=== PATIENT | female | born 1990 | race Caucasian/White ===

== ENCOUNTER 2025-01-23 16:54 | Outpatient (CLI) | payer BC, MEDICAID, SELFPAY | END 2025-01-23 16:55 | disposition home or self-care (01) | LOC: NFLDREF 16:55 | PROVIDERS: Visit Provider Registered Nurse | DX: Z34.83 Encounter for supervision of other normal pregnancy, third trimester (principal) | CPT/HCPCS: 87491; 87591 ==

== ENCOUNTER 2025-01-26 15:46 | Outpatient (CLI) | payer BC, MEDICAID, SELFPAY | END 2025-01-26 15:47 | disposition home or self-care (01) | PROVIDERS: Visit Provider Registered Nurse | DX: Z34.83 Encounter for supervision of other normal pregnancy, third trimester (principal); Z67.21 Type B blood, Rh negative | CPT/HCPCS: 86592; 86850; 87086; J2791 ==

== ENCOUNTER 2025-02-06 10:47 | Outpatient (CLI) | payer BC, MEDICAID, SELFPAY ==
--- NOTE | 2025-02-06 10:45 | CRLHL7_ITS ---
For Patients: As a result of the Century Cures Act, medical imaging exams and procedure reports are released immediately into your electronic medical record. You may view this report before your referring provider. If you have questions, please contact your health care provider. OBSTETRICAL ULTRASOUND TRANSABDOMINAL WITH UA DOPPLER ??? FOLLOW-UP, 02/06/2025 INDICATION: IUGR. CLINICAL HISTORY: LMP: 07/12/2024 AINRUDH by LMP: 04/18/2025 Gestational Age: 29 weeks 6 days COMPARISON: 01/05/2025, 12/01/2024 TECHNIQUE: Real-time rocha-scale transabdominal imaging of the fetus and pelvis was performed as well as color Doppler analysis of the umbilical vessels. FINDINGS: Fetus: Single Cervix: Not visualized positioning: Vertex Amniotic Fluid: 4.8 cm SDP Placenta technique: Transabdominal Placenta position: Posterior DOPPLERS: heart rate: 147 bpm Umbilical artery: 2.5 S/D; 28???34 weeks = less than 4.0 BIOMETRY: BPD: 6.5 cm, 26 weeks 3 days, less than 3% HC: 25.4 cm, 27 weeks 4 days, less than 3% AC: 23.8 cm, 28 weeks 0 days, 6% FL: 5.2 cm, 27 weeks 5 days, less than 3% FL/AC Ratio: 21.89% HC/AC ratio: 1.07 EFW: 1129 grams; 2 lbs. 8 oz. age by this ultrasound: 27 weeks 3 days ANIRUDH by this ultrasound: 05/05/2025 Percentile by ANIRUDH: less than 3% COMMENTS: Growth today = less than 3%, 01/05/25 = 9%, 12/01/24 = 24%. IMPRESSION: 1. Sonographic gestational age 27 weeks 3 days and sonographic due date 05/05/2025. Sonographic age is 17 days behind the clinical age. 2. Estimated weight is less than 3rd percentile. BPD, HC and FL are all less than 3rd percentile. AC is 6th percentile. 3. Umbilical artery S/D ratio is 2.5. ANDRIY CRENSHAW M.D. Diagnostic Radiologist [email or web address] Transcribed: 2:[address]/Dictated by: Andriy Crenshaw MD @ 02/06/2025 12:06:00 PM (Electronically Signed)
== END 2025-02-06 10:48 | disposition home or self-care (01) ==
LOC: US 10:47
PROVIDERS: Visit Provider Obstetrics & Gynecology
DX: O36.5930 Maternal care for other known or suspected poor fetal growth, third trimester, not applicable or unspecified (principal); Z3A.29 29 weeks gestation of pregnancy
CPT/HCPCS: 76816; 76820

== ENCOUNTER 2025-02-16 13:50 | Outpatient (CLI) | payer BC, MEDICAID, SELFPAY ==
--- NOTE | 2025-02-16 13:45 | CRLHL7_ITS ---
For Patients: As a result of the Cures Act, medical imaging exams and procedure reports are released immediately into your electronic medical record. You may view this report before your referring provider. If you have questions, please contact your health care provider. OB ULTRASOUND LIMITED WITH UMBILICAL ARTERY TRANSABDOMINAL Clinical History: LMP: 07/12/2024. ANIRUDH by LMP: 04/18/2025. GA: 31 w, 2 d. Single. Comparison: 02/06/2025, 02/02/2025, 01/05/2025. INDICATION: IUGR. TECHNIQUE: Real time rocha scale imaging of the fetus was performed. Transabdominal imaging performed. Spectral Doppler evaluation performed of umbilical artery. CERVIX: Not visualized. POSITIONING: Vertex. AMNIOTIC FLUID: 12.3 cm MEI. 4.5 cm SDP (N: greater than 2 x 1 cm) PLACENTA: Technique: Transabdominal. PLACENTA POSITION: Posterior. DOPPLER: heart rate: 141 bpm. Umbilical artery: 2.7 S/D. 28-34 w = less than 4.0. IMPRESSION: 1. Umbilical artery spectral Doppler evaluation performed. S/D ratio 2.7. This is considered normal. 2. Amniotic fluid single deepest pocket 4.5 cm. MEI 12.3 cm. Andriy Kelly M.D. Diagnostic Radiologist [email or web address] SP/Dictated by: Andriy Kelly MD @ 02/16/2025 4:24:00 PM (Electronically Signed)
== END 2025-02-16 13:51 | disposition home or self-care (01) ==
LOC: US 13:50
PROVIDERS: Visit Provider Obstetrics & Gynecology
DX: O36.5930 Maternal care for other known or suspected poor fetal growth, third trimester, not applicable or unspecified (principal); Z3A.35 35 weeks gestation of pregnancy
CPT/HCPCS: 76815; 76820

== ENCOUNTER 2025-02-16 15:20 | Outpatient (CLI) | payer BC, MEDICAID, SELFPAY ==
[2025-02-16] VITALS (14 sets, daily range): BP systolic 106; BP diastolic 64; PULSE 66–92; RESP 18; TEMP 36.6; O2SAT 95–100
--- NOTE | 2025-02-16 16:48 | PC.OBNST ---
NST Note NST Note Start: 02/16/25 15:43 Freq: ONCE Status: Active Protocol: Document 02/16/25 16:41 VMM (Rec: 02/16/25 16:47 VMM [id number]) NST Note 6 Para (# of births) 4 EDC 04/18/25 Gestational Age In 31 Weeks & 2 Days Weeks & Days High Risk Factors History of Labor/Delivery Patient Presented Other with Complaint(s) of Other Complaints [facility] due to heart rate having decelerations in clinic. Patient has IUGR. Reactive Yes Appropriate for Yes Gestational Age JOSE Ha RN Date 02/16/25 Reactive Yes Appropriate for Yes Gestational Age JOSE Joseph RN Date 02/16/25 OB NST charge Yes Complete NST Note Yes via Write Note The provider's electronic signature indicates the NST is reactive/appropriate for gestational age. *Note to provider: If an addendum is required, open the patient's chart and click on the note under the Nurse/Allied Health tab.
== END 2025-02-16 16:40 | disposition home or self-care (01) ==
LOC: OB OUT 15:24 → OB 15:24
PROVIDERS: Visit Provider Obstetrics & Gynecology
DX: O36.8330 Maternal care for abnormalities of the fetal heart rate or rhythm, third trimester, not applicable or unspecified (principal); Z3A.31 31 weeks gestation of pregnancy
CPT/HCPCS: 59025; G0463

== ENCOUNTER 2025-02-23 13:52 | Outpatient (CLI) | payer BC, MEDICAID, SELFPAY ==
--- NOTE | 2025-02-23 13:45 | CRLHL7_ITS ---
For Patients: As a result of the Cures Act, medical imaging exams and procedure reports are released immediately into your electronic medical record. You may view this report before your referring provider. If you have questions, please contact your health care provider. OB ULTRASOUND FOLLOW-UP LIMITED, 02/23/2025 CLINICAL HISTORY: IUGR. COMPARISON: 02/16/2025, 02/06/2025, 01/05/2025. TECHNIQUE: FINDINGS: ANIRUDH by LMP: 04/18/2025. GA: 32 weeks 2 days. CERVIX: Not visualized. POSITION: Vertex. AMNIOTIC FLUID: 14 cm MEI. 5.5 cm SDP. PLACENTA: Technique: TA. Placenta Position: Posterior. DOPPLERS: Heart Rate: 147 bpm. IMPRESSION: Umbilical artery spectral Doppler evaluation performed. S/D ratio 3.0 within normal limits. Andriy Kelly M.D. Diagnostic Radiologist [email or web address] Transcribed: 3:40 pm DW/Dictated by: Andriy Kelly MD @ 02/23/2025 3:29:00 PM (Electronically Signed)
== END 2025-02-23 13:53 | disposition home or self-care (01) ==
LOC: US 13:53
PROVIDERS: Visit Provider Obstetrics & Gynecology
DX: O36.5930 Maternal care for other known or suspected poor fetal growth, third trimester, not applicable or unspecified (principal); Z3A.32 32 weeks gestation of pregnancy
CPT/HCPCS: 76815; 76820

== ENCOUNTER 2025-03-02 13:50 | Outpatient (CLI) | payer BC, MEDICAID, SELFPAY ==
--- NOTE | 2025-03-02 13:45 | CRLHL7_ITS ---
For Patients: As a result of the Century Cures Act, medical imaging exams and procedure reports are released immediately into your electronic medical record. You may view this report before your referring provider. If you have questions, please contact your health care provider. OB ULTRASOUND FOLLOW-UP GROWTH TRANSABDOMINAL ANIRUDH by LMP: 04/18/2025. GA: 33 w, 1 d. Single. Comparison: US 02/23/2025, 02/16/2025, 02/06/2025. INDICATION: IUGR. TECHNIQUE: Real time rocha scale imaging of the fetus was performed. Transabdominal imaging performed. CERVIX: Not visualized. POSITIONING: Vertex. AMNIOTIC FLUID: 14.2 cm. 4.8 cm SDP (N: greater than 2 x 1 cm) PLACENTA: Technique: Transabdominal. PLACENTA POSITION: Posterior. DOPPLER: heart rate: 142 bpm. Umbilical artery: 3.3-2.2 S/D. 28-34 w = less than 4.0. BIOMETRY: BPD: 7.4 cm. 29 w, 4 d, <3 percent. HC: 28.1 cm. 30 w, 6 d, <3 percent. AC: 25.9 cm. 30 w, 1 d, <3 percent. FL: 5.8 cm. 30 w, 1 d, <3 percent. FL/AC ratio: 22.17 percent. HC/AC ratio: 1.08. EFW: 1516 g. Weight: 3 lbs, 5 oz. age by this US: 30 w, 1 d. ANIRUDH by this US: 05/10/2025. Percentile by ANIRUDH: <3 percent. IMPRESSION: 1. Sonographic gestational age 30 weeks 1 day and sonographic due date 05/10/2025. Sonographic age is 22 days behind the clinical age. 2. Estimated weight less than 3rd percentile. BPD, HC, AC and FL all less than 3rd percentile. 3. Umbilical artery spectral Doppler evaluation performed. SD ratio between 2.2 and 3.3, considered normal. Andriy Kelly M.D. Diagnostic Radiologist [email or web address] SP/Dictated by: Andriy Kelly MD @ 03/05/2025 4:31:00 PM (Electronically Signed)
== END 2025-03-02 13:51 | disposition home or self-care (01) ==
LOC: US 13:51
PROVIDERS: Visit Provider Obstetrics & Gynecology
DX: O36.5930 Maternal care for other known or suspected poor fetal growth, third trimester, not applicable or unspecified (principal); Z3A.33 33 weeks gestation of pregnancy
CPT/HCPCS: 76816; 76820

== ENCOUNTER 2025-03-09 13:58 | Outpatient (CLI) | payer BC, MEDICAID, SELFPAY ==
--- NOTE | 2025-03-09 13:45 | CRLHL7_ITS ---
For Patients: As a result of the Cures Act, medical imaging exams and procedure reports are released immediately into your electronic medical record. You may view this report before your referring provider. If you have questions, please contact your health care provider. OBSTETRICAL ULTRASOUND WITH UA DOPPLER ??? LIMITED, 03/09/2025 INDICATION: IUGR. CLINICAL HISTORY: ANIRUDH by LMP: 04/18/2025 Gestational Age: 34 weeks 2 days COMPARISON: 03/02/2025, 02/23/2025, 02/16/2025. TECHNIQUE: Real-time rocha-scale transabdominal imaging of the fetus was performed as well as color Doppler analysis of the umbilical vessels. FINDINGS: Fetus: Single positioning: Vertex Amniotic Fluid: MEI: 16.5 cm 5.5 cm SDP Placenta technique: Transabdominal Placenta position: Posterior DOPPLERS: heart rate: 129 bpm Umbilical artery: 2.5 S/D; greater than 34 weeks = less than 3.5 IMPRESSION: Spectral Doppler ultrasound of the umbilical artery performed. Normal S/D ratio of 2.5. ANDRIY CRENSHAW M.D. Diagnostic Radiologist [email or web address] Transcribed: 5:[address]/Dictated by: Andriy Crenshaw MD @ 03/09/2025 3:13:00 PM (Electronically Signed)
== END 2025-03-09 13:59 | disposition home or self-care (01) ==
LOC: US 13:58
PROVIDERS: Visit Provider Obstetrics & Gynecology
DX: O36.5930 Maternal care for other known or suspected poor fetal growth, third trimester, not applicable or unspecified (principal); Z3A.34 34 weeks gestation of pregnancy
CPT/HCPCS: 76815; 76820

== ENCOUNTER 2025-03-16 13:09 | Outpatient (CLI) | payer BC, MEDICAID, SELFPAY ==
--- NOTE | 2025-03-16 13:00 | CRLHL7_ITS ---
For Patients: As a result of the Cures Act, medical imaging exams and procedure reports are released immediately into your electronic medical record. You may view this report before your referring provider. If you have questions, please contact your health care provider. OB ULTRASOUND LMP: 07/12/2024. ANIRUDH by LMP: 04/18/2025. GA: 35 w, 2 d. Single. Comparison: Ultrasounds 03/09/25, 03/02/25 and 02/23/25 INDICATION: IUGR. TECHNIQUE: Real time rocha scale imaging of the fetus was performed. Transabdominal. CERVIX: Not visualized. Vertex. AMNIOTIC FLUID: 13.2 cm MEI. 3.8 cm. SDP (N: greater than 2 x 1 cm) PLACENTA: Technique: Transabdominal. PLACENTA POSITION: Posterior. DOPPLER: heart rate: 118-127 bpm. >34 weeks=<3.5. IMPRESSION: 1. Spectral Doppler evaluation of the umbilical artery performed. SD ratio 2.6. 2. Amniotic fluid single lead ends pocket 3.8 cm. MEI 13.2 cm. Andriy Kelly M.D. Diagnostic Radiologist [email or web address] EMILY/jesus DW/Dictated by: Andriy Kelly MD @ 03/17/2025 9:20:00 PM (Electronically Signed)
--- OUTSIDE RECORDS SUMMARY | 2025-03-17 00:58 | XMS_ITS | Encounter Summary ---
Author Organization [facility] Address [address] [place] [address] Care Team Providers Care Sample Worker Name Role Phone Katarzyna Avitia CNM Primary Care Provider + [phone] Antionette Nelson APRN CNM Unavailable Unavailable Katarzyna Avitia CNM Unavailable [phone] Lesley Mistry MD Unavailable Unavaila ble Antionette Nelson APRN CNM Unavailable Unavailable Antionette Nelson APRNM Unavailable Unavailable Diogenes Soares MD Unavailable [phone] Diogenes Soares MD Unavailable [phone] Ebony Gandara MD Unavailable [phone] Nighat Pendleton MD Unavailable [phone] Reason for Visit * Reason Onset Date Comments Appointment 04/11/2019 Encounter Details Date Type Department Care Team (Late st Contact Info) Description [place]11/[place] [facility] [place] [facility] [address] [place] [phone] Pinky Jacob APRN CNM [address] [place] [address] Appointment Social History Tobacco Use Types Packs/Day Years Used Date Smoking Tobacco: Never Smokeless Tobacco: Never Alcohol Use Standard Drinks/Week Comments No 0 (1 standard drink = 0.6 oz pur e alcohol) PHQ-2 Answer Date Recorded PHQ-2 Score 0 11/29/2018 Education Answer Date Recorded What is the highest level of school you have completed or the highest degree you have received? Bachelor's degree (e.g., BA, AB, BS) 11/29/2018 Comments Yes Sex and Gender Information Value Date Recorded Sex Assigned at Not on file Legal Sex Female 3:16 AM RACING MANAGER Gender Identity Not on file Sexual Orientation Straight 11/23/2018 11 :37 AM RACING MANAGER documented as of this encounter Plan of Treatment Not on file documented as of this encounter Visit Diagnoses Not on filedocumented in this encounter Additional Health Concerns Assessment Noted Time PHQ-9 Depression Total Score: 0 08/12/20 17 1:29 PM RACING MANAGER documented as of this encounter Care Teams Sample Worker Relationship Specialty Start Date End Date Katarzyna Avitia CNM PCP - General canvas worker 03/06/19 Antionette Nelson APRN CNM Assigned OBGYN Provider 10/13/20 10/19/20 Katarzyna Avitia CNM [address] [facility] [address] [place], [place] [address] Assigned OBGYN Provider 08/18/20 Lesley Mistry MD Assigned OBGYN Provider 09/15/20 10/12/20 Antionette Nelson APRN CNM Assigned OBGYN Provider 07/19/20 08/17/20 Antionette Nelson APRN CNM Assigned OBGYN Provider 09/01/20 09/14/20 Diogenes Soares MD [address] [place] [address] [address] [place], [place] [address] Assigned OBGYN Provider 02/02/21 Diogenes Soares MD [address] [place], [place] [id number] Assigned OBGYN Provider 12/29/20 1 Ebony Gandara MD [address] [place] [address] Assigned OBGYN Provider 01/26/21 1 Nighat Pendleton MD [address] [place] [address] Assigned OBGYN Provider 04/25/22 documented as of this encounter
--- OUTSIDE RECORDS SUMMARY | 2025-03-17 00:58 | XMS_ITS | Encounter Summary ---
Author Organization [facility] Address [address] [place] [address] Care Team Providers Care Bridge Opener Name Role Phone Katarzyna Avitia CNM Primary Care Provider + [phone] Antionette Nelson APRN CNM Unavailable Unavailable Katarzyna Avitia CNM Unavailable [phone] Lesley Mistry MD Unavailable Unavaila ble Antionette Nelson APRN CNM Unavailable Unavailable Antionette Nelson APRN CNM Unavailable Unavailable Diogenes Soares MD Unavailable [phone] Diogenes Soares MD Unavailable [phone] Ebony Gandara MD Unavailable [phone] Nighat Pendleton MD Unavailable [phone] Encounter Details Date Type Department Care Team (Late st Contact Info) Description 11/21/2019 [facility] [place] [facility] [address] [place] [phone] Mitul Lopez, WENDY Social History Tobacco Use Types Packs/Day Years Used Date Smoking Tobacco: Never Smokeless Tobacco: Never Alcohol Use Standard Drinks/Week Comments No 0 (1 standard drink = 0.6 oz pur e alcohol) PHQ-2 Answer Date Recorded PHQ-2 Score 0 11/29/2018 [place]oo Depression Scale Answer Date Recorded [place] Depression Score 3 04/19/2019 Last EPDS Self Harm Result Not on file 04/19 Education Answer Date Recorded What is the highest level of school you have completed or the highest degree you have received? Bachelor's degree (e.g., BA, AB, BS) 11/29/2018 Comments No Sex and Gender Information Value Date Recorded Sex Assigned at Not on file Legal Sex Female 3:16 AM POLYSOMNOGRAPH TECH Gender Identity Not on file Sexual Orientation Straight 11/23/2018 11 :37 AM POLYSOMNOGRAPH TECH documented as of this encounter Plan of Treatment Not on file documented as of this encounter Visit Diagnoses Not on filedocumented in this encounter Additional Health Concerns Assessment Noted Time PHQ-9 Depression Total Score: 0 08/12/20 17 1:29 PM POLYSOMNOGRAPH TECH documented as of this encounter Care Teams Bridge Opener Relationship Specialty Start Date End Date Katarzyna Avitia CNM PCP - General quality intern 03/06/19 Antionette Nelson APRN CNM Assigned OBGYN Provider 10/13/20 10/19/20 Katarzyna Avitia CNM [address] [facility] [address] [place] [address] Assigned OBGYN Provider 08/18/20 Lesley Mistry MD Assigned OBGYN Provider 09/15/20 10/12/20 Antionette Nelson APRN CNM Assigned OBGYN Provider 07/19/20 08/17/20 Antionette Nelson APRN CNM Assigned OBGYN Provider 09/01/20 09/14/20 Diogenes Soares MD [address] [place] [address] Assigned OBGYN Provider 02/02/21 Diogenes Soares MD [address] [place] [address] Assigned OBGYN Provider 12/29/20 1 Ebony Gandara MD [address] [place], [place] [id number] Assigned OBGYN Provider 01/26/21 1 Nighat Pendleton MD [address] [place], [place] [id number] Assigned OBGYN Provider 04/25/22 documented as of this encounter
--- OUTSIDE RECORDS SUMMARY | 2025-03-17 00:58 | XMS_ITS | Clinical Summary ---
Author Organization [facility] Address [address] [place] [address] Care Team Providers Care Awning Spreader Name Role Phone Katarzyna Avitia NATALIEQuang Primary Care Provider + [phone] Allergies No known active allergies Medications Vit-Fe Fumarate-FA ( VITAMIN) 27-0.8 MG TABSIndications: Encounter for supervision of other normal in second trimester Take 1 tablet by mouth daily 90 tablet 3 9 Active ibuprofen (ADVIL/MOTRIN) 600 MG tabletIndication s:Normal labor and delivery Take 1 tablet (600 mg) by mouth every 6 hours as needed for moderate pain 20 tablet 1 Active Active Problems Problem Noted Date Diagnosed Date Indication for care in labor or delivery 021 Labor and delivery indication for care or interv ention 04/18/2019 (normal spontaneous vaginal delivery) 04/18 Encounter for triage in patient 019 Normal labor and delivery 04/01/2019 Immunizations Immunization Administration Dates Next Due Rhogam 02/03/2019 TDAP Vaccine (Adacel) 02/03/2019 Family History Medical History Relation Comments Cancer Maternal Grandfather oral Heart Disease Maternal Grandfather Hypertension Maternal Grandfather Cancer Paternal Grandfather Cancer Paternal Grandmother brain Relation Status Comments Father Alive Maternal Grandfather Mother Alive Paternal Grandfather Paternal Grandmother Social History Tobacco Use Types Packs/Day Years Used Date Smoking Tobacco: Never Smokeless Tobacco: Never Tobacco Cessation:Counseling Given: No Alcohol Use Standard Drinks/Week Comments No 0 (1 standard drink = 0.6 oz pur e alcohol) PHQ-2 Answer Date Recorded PHQ-2 Score 0 11/29/2018 Barnard Depression Scale Answer Date Recorded Barnard Depression Score 1 02/26/2021 Last EPDS Self Harm Result Not on file 02/26 Adolescent Education Answer Date Record ed Getting School Help Needed Not on file 07/04 Education Answer Date Recorded What is the highest level of school you have completed or the highest degree you have received? Bachelor's degree (e.g., BA, AB, BS) 11/29/2018 Comments No Sex and Gender Information Value Date Recorded Sex Assigned at Not on file Legal Sex Female 3:16 AM BUSINESS ASST Gender Identity Not on file Sexual Orientation Straight 11/23/2018 11 :37 AM BUSINESS ASST Last Filed Vital Signs Vital Sign Reading Time Taken Comments Blood Pressure 109/67 02/27/2021 7:45 AM CDT Pulse 73 02/27/2021 7:45 AM CDT Temperature 36.5 C (97.7 F) 02/27/2021 7:45 AM CDT Respiratory Rate 16 02/27/2021 7:45 AM CDT Oxygen Saturation 99% 04/01/2019 12:45 AM CDT Inhaled Oxygen Concentration - - Weight 63.7 kg (140 lb 6.4 oz) 04/12/2019 11:35 AM CDT Height 154.9 cm (5' 1) 02/25/2021 11:00 AM CDT Body Mass Index 26.53 04/05/2019 1:51 PM CDT Plan of Treatment Not on file Insurance [employer] [email or web address] Member Subscriber Plan / Payer (Ef fective 2019-Present) Name:JULIA MELCHOR Relation to Subscriber:Self Name:Julia Pedro Payer ID:[id number] (NAIC) Type:PPO Address: [facility] [id number] [place] [id number] Advance Directives For more information, please contact: [phone] * Full Code (Latest Code Status on File) Date Activated Date Inactivated Comments 02/27/2021 7:07 AM 02/27/2021 6:38 PM All basic and advanced life-sustaining interventions are performed as appropriate Question Answer Comments Code status determined by: Discussion with patie nt/ legal decision maker Care Teams Awning Spreader Relationship Specialty Start Date End Date Katarzyna Avitia CNM PCP - General logistics program manager 03/06/19
--- OUTSIDE RECORDS SUMMARY | 2025-03-17 00:58 | XMS_ITS | Encounter Summary ---
Author Organization [facility] Address [address] [place] [address] Care Team Providers Care Garageman Name Role Phone Katarzyna Avitia CNM Primary Care Provider + [phone] Antionette Nelson APRN CNM Unavailable Unavailable Katarzyna Avitia CNM Unavailable [phone] Lesley Mistry MD Unavailable Unavaila ble Antionette Nelson APRN CNM Unavailable Unavailable Antionette Nelson APRN CNM Unavailable Unavailable Diogenes Soares MD Unavailable [phone] Diogenes Soares MD Unavailable [phone] Ebony Gandara MD Unavailable [phone] Nighat Pendleton MD Unavailable [phone] Encounter Details Date Type Department Care Team (Late st Contact Info) Description 04/10/2019 [facility] [place] [facility] [facility] [address] [place] [phone] Pinky Jacob APRN [facility] [address] [place] [address] Social History Tobacco Use Types Packs/Day Years [...] on file Legal Sex Female 3:16 AM ROLL UP OPERATOR Gender Identity Not on file Sexual Orientation Straight 11/23/2018 11 :37 AM ROLL UP OPERATOR documented as of this encounter Plan of Treatment Not on file documented as of this encounter Visit Diagnoses Not on filedocumented in this encounter Additional Health Concerns Assessment Noted Time PHQ-9 Depression Total Score: 0 08/12/20 17 1:29 PM ROLL UP OPERATOR documented as of this encounter Care Teams Garageman Relationship Specialty Start Date End Date Katarzyna Avitia CNM PCP - General services program manager 03/06/19 Antionette Nelson APRN CNM Assigned OBGYN Provider 10/13/20 10/19/20 Katarzyna Avitia CNM [address] [address] Assigned OBGYN Provider 08/18/20 Lesley Mistry MD Assigned OBGYN Provider 09/15/20 10/12/20 Antionette Nelson APRN CNM Assigned OBGYN Provider 07/19/20 08/17/20 Antionette Nelson APRN CNM Assigned OBGYN Provider 09/01/20 09/14/20 Diogenes Soares MD [address] [address] [place], [place] [address] Assigned OBGYN Provider 02/02/21 Diogenes Soares MD [address] [place] [address] Assigned OBGYN Provider 12/29/20 1 Ebony Gandara MD [address] [place], [place] [address] Assigned OBGYN Provider 01/26/21 1 Nighat Pendleton MD [address] [place], [place] [id number] Assigned OBGYN Provider 04/25/22 documented as of this encounter
--- OUTSIDE RECORDS SUMMARY | 2025-03-17 00:58 | XMS_ITS | Encounter Summary ---
Author Organization [facility] Address [address] [place] [address] Care Team Providers Care Library Aide Name Role Phone No Ref-Primary, Physician Primary Care Provider Katarzyna Avitia CNM Primary Care Provider + [phone] Antionette Nelson APRN CNM Unavailable Unavailable Katarzyna AvitiaM Unavailable [phone] Lesley Mistry MD Unavailable Unavaila ble Antionette Nelson APRN CNM Unavailable Unavailable Antionette Nelson APRN CNM Unavailable Unavailable Diogenes Soares MD Unavailable [phone] Diogenes Soares MD Unavailable [phone] Ebony Gandara MD Unavailable [phone] Ngihat Pendleton MD Unavailable [phone] Reason for Visit * Reason Onset Date Comments Care 02/07/2019 Encounter Details Date Type Department Care Team (Late st Contact Info) Description 02/07/2019 [facility] Medical Advice [facility] Women's [facility] [address] [place] [address] Katarzyna Avitia, CNM [address] [place] [address] Care Social History Tobacco Use Types Packs/Day Years [...] on file Legal Sex Female 3:16 AM DIAGNOSTIC ASSISTANT Gender Identity Not on file Sexual Orientation Straight 11/23/2018 11 :37 AM DIAGNOSTIC ASSISTANT documented as of this encounter Miscellaneous Notes * Telephone Encounter - Katarzyna Avitia CNM - 02/09/2019 10:29 AM CDT I have contacted the Patient Statuary Painter at [facility]. She will reach out to the patient and hopefully be able to assist her in her request. Please le the patient know that someone will be contacting her. Thank you, Katarzyna Avitia APRN, CNM * Telephone Encounter - Nory Forrest RN - 02/07/2019 2:18 PM CDT Katarzyna are you aware of where to direct this pt? Nory Erickson R.N. [facility] documented in this encounter Plan of Treatment Not on file documented as of this encounter Visit Diagnoses Not on filedocumented in this encounter Additional Health Concerns Assessment Noted Time PHQ-9 Depression Total Score: 0 08/12/20 17 1:29 PM DIAGNOSTIC ASSISTANT documented as of this encounter Care Teams Library Aide Relationship Specialty Start Date End Date No Ref-Primary, Physician PCP - General 07/30/17 03/05/19 Katarzyna Avitia CNM PCP - General continuous still operator 03/06/19 Antionette Nelson APRN CNM Assigned OBGYN Provider 10/13/20 10/19/20 Katarzyna Avitia CNM [address] [facility] [address] [place] [address] Assigned OBGYN Provider 08/18/20 Lesley Mistry MD Assigned OBGYN Provider 09/15/20 10/12/20 Antionette Nelson APRN CNM Assigned OBGYN Provider 07/19/20 08/17/20 Antionette Nelson APRN CN Assigned OBGYN Provider 09/01/20 09/14/20 Diogenes Soares MD [address] [place] [address] Assigned OBGYN Provider 02/02/21 Diogenes Soares MD [address] [place], [place] [id number] Assigned OBGYN Provider 12/29/20 1 Ebony Gandara MD [address] [place], [place] [id number] Assigned OBGYN Provider 01/26/21 1 Nighat Pendleton MD [address] [place], [place] [id number] Assigned OBGYN Provider 04/25/22 documented as of this encounter
--- OUTSIDE RECORDS SUMMARY | 2025-03-17 00:58 | XMS_ITS | Encounter Summary ---
Author Organization [facility] Address [address] [place] [address] Care Team Providers Care Orderlies Teacher Name Role Phone No Ref-Primary, Physician Primary Care Provider Katarzyna Avitia CNM Primary Care Provider + [phone] Antionette Nelson APRN CNQuang Unavailable Unavailable Katarzyna AvitiaM Unavailable [phone] Lesley Mistry MD Unavailable Unavaila ble Antionette Nelson APRN, CNM Unavailable Unavailable Antionette Nelson APRNM Unavailable Unavailable Diogenes Soares MD Unavailable [phone] Diogenes Soares MD Unavailable [phone] Ebony Gandara MD Unavailable [phone] Nighat Pendleton MD Unavailable [phone] Encounter Details Date Type Department Care Team (Late st Contact Info) Description 12/21/2018 [facility] Medical Advice [facility] Women's [address] [place] [address] Antionette Nelson APRN CNM Social History Tobacco Use Types Packs/Day Years [...] on file 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 Gender Identity Not on file Sexual Orientation Straight 11/23/2018 11 :37 AM COLLET MAKER documented as of this encounter Plan of Treatment Not on file documented as of this encounter Visit Diagnoses Not on filedocumented in this encounter Additional Health Concerns Assessment Noted Time PHQ-9 Depression Total Score: 0 08/12/20 1:29 PM COLLET MAKER documented as of this encounter Care Teams Orderlies Teacher Relationship Specialty Start Date End Date No Ref-Primary, Physician PCP - General 07/30/17 03/05/19 Katarzyna Avitia CNM PCP - General 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 03/06/19 Antionette Nelson APRN CNM Assigned OBGYN Provider 10/13/20 10/19/20 Katarzyna Avitia CNM [address] [address] Assigned OBGYN Provider 08/18/20 Lesley Mistry MD Assigned OBGYN Provider 09/15/20 10/12/20 Antionette Nelson APRN CNM Assigned OBGYN Provider 07/19/20 08/17/20 Antionette Nelson APRN CNM Assigned OBGYN Provider 09/01/20 09/14/20 Diogenes Soares MD [address] [place] [address] [address] [place], [place] [id number] Assigned OBGYN Provider 02/02/21 Diogenes Soares MD [address] [place], [place] [id number] Assigned OBGYN Provider 12/29/20 1 Ebony Gandara MD [address] [place] [address] Assigned OBGYN Provider 01/26/21 1 Nighat Pendleton MD [address] [place] [address] Assigned OBGYN Provider 04/25/22 documented as of this encounter
--- OUTSIDE RECORDS SUMMARY | 2025-03-17 00:58 | XMS_ITS | Encounter Summary ---
Author Organization [facility] Address [address] [place] [address] Care Team Providers Care Ballet Soloist Name Role Phone No Ref-Primary, Physician Primary Care Provider Katarzyna Avitia CNM Primary Care Provider + [phone] Antionette Nelson APRN CNM Unavailable Unavailable Katarzyna AvitiaM Unavailable [phone] Lesley Mistry MD Unavailable Unavaila ble Antionette Nelson APRN CNM Unavailable Unavailable Antionette Nelson APRN CNM Unavailable Unavailable Diogenes Soares MD Unavailable [phone] Diogenes Soares MD Unavailable [phone] Ebony Gandara MD Unavailable [phone] Nighat Pendleton MD Unavailable [phone] Reason for Visit * Reason Onset Date Comments Care 02/06/2019 Encounter Details Date Type Department Care Team (Late st Contact Info) Description 02/06/2019 [facility] Medical Advice [facility] [address] [place] [address] Katarzyna Avitia, CNM [address] [place] [address] Care Social History Tobacco Use Types Packs/Day [...] on file 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 Gender Identity Not on file Sexual Orientation Straight 11/23/2018 11 :37 AM LAG SCREWER documented as of this encounter Plan of Treatment Not on file documented as of this encounter Visit Diagnoses Not on filedocumented in this encounter Additional Health Concerns Assessment Noted Time PHQ-9 Depression Total Score: 0 08/12/20 17 1:29 PM LAG SCREWER documented as of this encounter Care Teams Ballet Soloist Relationship Specialty Start Date End Date No Ref-Primary, Physician PCP - General 07/30/17 03/05/19 Katarzyna Avitia CNM 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 03/06/19 Antionette Nelson APRN CNM Assigned OBGYN Provider 10/13/20 10/19/20 Katarzyna Avitia CNM [address] [address] Assigned OBGYN Provider 08/18/20 Lesley Mistry MD Assigned OBGYN Provider 09/15/20 10/12/20 Antionette Nelson APRN CNM Assigned OBGYN Provider 07/19/20 08/17/20 Antionette Nelson APRN CNM Assigned OBGYN Provider 09/01/20 09/14/20 Diogenes Soares MD [address] [place] [address] Assigned OBGYN Provider 02/02/21 Diogenes Soares MD [address] [place] [address] Assigned OBGYN Provider 12/29/20 1 Ebony Gandara MD [address] [place], [place] [address] Assigned OBGYN Provider 01/26/21 1 Nighat Pendleton MD [address] [place], [place] [address] Assigned OBGYN Provider 04/25/22 documented as of this encounter
--- OUTSIDE RECORDS SUMMARY | 2025-03-17 00:58 | XMS_ITS | Clinical Summary ---
Author Organization [facility] Address [address] [place] [id number] Care Team Providers Care Line Dancer Name Role Phone Vandana Mandel DO Primary Care Provider Allergies No known active allergies Medications 25/iron fum/folic/dha (-1 ORAL) Take by mouth. Active aspirin (Junior Low Dose Aspirin) 81 mg enteric coated tabletIndication s: care, subsequent in first trimester (HC) Take 1 Tablet (81 mg) by mouth once daily. 30 Tablet 6 09/29/2024 Active Active Problems Problem Noted Date Diagnosed Date growth restriction antepartum 01/08/2025 [facility] Supervision of high-risk Overview (01/08/2025): SRO MPP - Completed [x] Patient name: Julia Pedro : 1990 Age: 34 y.o. Date of SRO: 01/08/2025 Estimated Date of Delivery: 04/18/25 Gest Age: 25w5d G/P: Current BMI: 28.89 Reason for referral: L2 for FGR REFERRING PROVIDER/CLINIC LOCATION/FAX #: Line Dancer Role and Specialty Contact Info Address Start End Comments Vandana Mandel DO General (Obstetrics and Gynecology) [address] [facility] [address] 11/27/2022 - - Primary MD approves scheduling of recommended ultrasounds/testing: Yes Please schedule the following: [x] Peters [] Multiples: [] Consult [x] Ultrasound: - Level 2 (including echo) - 75 minutes [] Lab: [x] Genetic Counseling [x] Before [] After []15 [x] 30 []45 [][facility]S []Amnio [] BMI > 40 [] Supervisor Sewing Room - Language [] Non-SC Insurance: Location Specialty Days Any [facility] Clinic [x] In-person [] Virtual [] Either N/A Comments: RN: ALPHONSO CASTRO RN Ross Carrier Driver: GC: SANTOS MCKEON/Provider: Date:01/08/2025 Urgency: 4-10 days []Can be sooner [] Can be split Julia Pedro : 1990 [facility] ULTRASOUND/TESTING PATIENT [facility] CONSULT ON REFERRING PROVIDER/CLINIC LOCATION/FAX #: Line Dancer Role and Specialty Contact Info Address Start End Comments Vandana Mandel DO General (Obstetrics and Gynecology) [address] [facility] [address] 11/27/2022 - - Primary provider approves scheduling of recommended ultrasounds/testing: Yes Support person name: Supervisor Sewing Room: No ULTRASOUND TYPE: L2 REASON FOR VISIT: FGR NEXT VISIT ALERTS: Final ANIRUDH by LMP LMP Date: Patient's last menstrual period was 07/12/2024 (exact date). ANIRUDH: 04/18/25 Early US: Date: 09/29/24 GA: 12w2d ANIRUDH: 04/11/25 PrePregnancy Weight: 160 lb Height: 62.5 BMI: 28.89 PLANS & FUTURE APPOINTMENTS: ULTRASOUND/GROWTH PLAN: - Growth: Next TESTING PLAN: - Testing: Through DELIVERY PLAN: - Scheduled delivery: - Preferred delivery location: PRIMARY DIAGNOSIS: 34 y.o. Estimated Date of Delivery: 04/18/25 : FGR 9% at 24w US MATERNAL: AMA (34) BMI 28.89 Rh neg Low-lying placenta Hx 4 term vag del (2016, 2018, 2020, 2022) Hx of growth restriction- Neonates weighed 4lb 14oz, 4lb 13oz, and 5lb 5 oz in G2, G4, G5 pregnancies, respectively PREVIOUS ULTRASOUNDS: 01/05/25 (Growth@primary@25w2d) EFW 681 gm, 9%, BPD 7% 12/01/24 (Basic@20w0d) EFW 318 gm, 24% 09/29/24 GA: 12w2d ANIRUDH: 04/11/25 ECHO: SPECIALISTS/CONSULTS: Include: Specialty MD Clinic Name Phone# LV NV and ADDED TO PATIENT CARE TEAM No GENETICS: Declines/Not Done CARE COORDINATION: PERTINENT LABS: Blood type: B Rh Negative Antibody screen: Negative PERTINENT MEDS: bASA. PNV PROCEDURES: PLAN OF CARE: Original and updated POC Low-lying placenta 12/01/2024 Antepartum multigravida of advanced maternal age 0109/30/2024 History of poor growth 09/30/2024 09/04/2024 Overview (01/08/2025): FOB: Conor Dating criteria: by LMP c/w FTU Rh: neg Ab: neg Rubella: imm Pap smear: Sep 2020 NILM, neg HPV Aneuploidy and carrier screening: declines Influenza vaccine: declines Anatomy Scan: placenta posterior, low lying placenta, fetus wnl 1 hr GTT: Tdap: Presentation at 36 wks: GBS: PPBC: NFP At next visit: review growth US and placenta location, review 28w labs, offer Tdap, Rhogam issues: Hx of x4- rec type & screen on admit and TXA prior to delivery Low lying placenta, resolved at 25w- initially was 1.3 cm from cervix Rh negative- rec Rhogam at 28w growth restriction- EFW 9%tile, referred to [facility] 01/08 AMA- declines NIPT, due to addt'l RF LDASA recommended Hx of precip delivery- after last IOL Hx of growth restriction- Neonates weighed 4lb 14oz, 4lb 13oz, and 5lb 5 oz in G2, G4, G5 pregnancies, respectively. Rec growth US q4w starting at 24w (need to order 36w US, others have been ordered) BMI 26 (148)- rec 15-25 lb weight gain Precipitous delivery 12/01/2022 Rh D negative blood type 10/14/2018 Overview (09/30/2024): Will need Rhogam at 28w Estimated Date of Delivery Comme nts Yes 04/18/2025 Based on last me nstrual period of 07/12/2024 (Exact Date) Encounters Date Type Department Care Team Description 01/09/2025 Transcribe Orders [facility] [address] [facility] [address] [place] [address] Vandana Beaulieu DO 01/05/2025 3:15 PM CDT OB Encounter [facility] [address] [place] [address] Vandana Beaulieu DO Care (28 weeks ) 01/05/2025 2:00 PM CDT - 01/05/2025 11:59 PM CDT Hospital Encounter [facility] [address] [place] [address] Vandana Beaulieu DO , unspecified gestational age (HC) 01/05/2025 Travel 01/02/2025 Orders Only [facility] [address] [place] [address] Vandana Beaulieu DO <No scans attached> from Last 3 Months Immunizations Immunization Administration Dates Next Due Tdap 12/18/2020,02/03/2019 Family History Relation Name Status Comments Father Alive Mother Alive Social History Tobacco Use Types Packs/Day Years Used Date Smoking Tobacco: Never Smokeless Tobacco: Never Tobacco Cessation:Counseling Given: Not Answered Alcohol Use Standard Drinks/Week Comments Not Currently 0 (1 standard drink = 0.6 oz pur e alcohol) PHQ-2 Answer Date Recorded PHQ-2 TOTAL SCORE 0 09/29/2024 Social Connections Answer Date Recorded Do you often feel lonely or isolated from those around you? 0 09/26/2024 Financial Resource Strain Answer Date R ecorded Difficulty of Paying Living Expenses 3 10/24/2024 Difficulty of Paying Living Expenses Not on file 10/24/2024 Food Insecurity Answer Date Recorded Do you worry your food will run out before you are able to buy more? 1 09/26/2024 Transportation Needs Answer Date Record ed Does lack of transportation keep you from medica l appointments? 1 09/26/2024 Does lack of transportation keep you from work, meetings or getting things that you need? 1 09/26/2024 Housing Stability Answer Date Recorded What is your housing situation today? 1 09/26/2024 Utilities Answer Date Recorded Do you have trouble paying f or utilities (for example, heat, electricity, water, phone)? 1 09/26/2024 Estimated Date of Delivery Comme nts Yes 04/18/2025 Based on last me nstrual period of 07/12/2024 (Exact Date) Sex and Gender Information Value Date Recorded Sex Assigned at Not on file Legal Sex Female 1:02 PM CDT Gender Identity Not on file Sexual Orientation Not on file Obstetrics History Para Term AB IAB SAB Ectopic Multiple Livin g Live Births 6 4 3 1 1 1 0 4 4 Date Outcome GA Total Labor Labor/2nd/3rd Weight Sex Type Anes PTL Luís A1 A5 Name Clin 6 SAB SPONTA NEOUS 2016 36w 2d 2.21 kg (4 lb 14 oz) M Vag Livin g 2018 Term 39w 0d 2.75 kg (6 lb 1 oz) M Vag Livin g 2020 Term 37w 3d 2.19 kg (4 lb 13.3 oz) M Livin g 2022 Term 37w 6d 3h 58m 3h 35m/0h 04m/0h 19m 2.41 kg (5 lb 5 oz) M Vag-Sp ont Livin g 8 9 WADDEL L,JAYY Saleh , Ivan Cheung MD Delivery Location:Hospital ( [facility] ) Current Summary Episode Dates Number of Fetuses Estimated Date of Delivery 09/04/2024 - Present (03/17/2025) 04/18/2025 (set by Vandana Mandel DO on 09/29/2024 based on Last Menstrual Period on 07/12/2024 (Exact Date)) Dating Summary Based On ANIRUDH GA Diff Last Menstrual Period on 07/12/2024 (Exact Date) 04/18/2025 Working Ultrasound on 09/29/2024 04/11/2025 +1w0d GA:12w2d Alternate ANIRUDH Entry 04/18/2025 Same Overview and Plan Delivery Plans Planned delivery method:Vaginal Vitals Pregravid Weight Height TWG (As of 03/17/2025) Pregrav id BMI 1.585 m (5' 2.4) Date GA Fund Present FHR Mvmt BP Weight Edema Alb Glu Ket Dil/ Eff/Sta 5 11w2d Inpatient data not displayed here. See encounter summary. 5 20w2d Inpatient data not displayed here. See encounter summary. 5 25w2d Inpatient data not displayed here. See encounter summary. Notes Progress Notes - OB Encounte r - 01/05/2025 - GA:25w2d 01/05/2025 - 25w2d - Vandana Minor DO Care Visit Subjective Care (28 weeks ) HISTORY OF PRESENT ILLNESS Patient is a 34 y.o. F at 25w2d here for return OB visit. She is doing well today. She denies any vaginal bleeding, loss of fluid, or contractions. She notes good movement. Patient is requesting CMV testing. She reports she knows two families and both of their children have been affected by CMV. 1 child is deaf. REVIEW OF SYSTEMS Obtained and is negative other than stated in the HPI. Objective PHYSICAL EXAMINATION Vitals: 01/05/25 1505 BP: 110/80 Cuff Site: Right Arm Position: Sitting Cuff Size: Adult Regular Pulse: 80 Weight: 72.6 kg (160 lb) Body mass index is 28.89 kg/m . General: No acute distress alert and oriented. Abdomen: Soft, gravid, nontender to palpation. Extremities: Warm, nontender, no edema. Assessment & Plan 1. , unspecified gestational age (HC) (Primary) FOB: Conor Dating criteria: by LMP c/w FTU Rh: neg Ab: neg Rubella: imm Pap smear: Sep 2020 NILM, neg HPV Aneuploidy and carrier screening: declines Influenza vaccine: declines PPBC: NFP - 28-week labs ordered for next visit. Will also plan to obtain CMV screening at that time. ultrasound performed today to assess growth and placental location. Read is pending. Patient will be notified with results. issues: Hx of x4- rec type & screen on admit and TXA prior to delivery Low lying placenta- 1.3 cm from cervix, strict pelvic rest advised Rh negative- rec Rhogam at 28w AMA- declines NIPT, due to addt'l RF LDASA recommended Hx of precip delivery- after last IOL Hx of growth restriction- Neonates weighed 4lb 14oz, 4lb 13oz, and 5lb 5 oz in G2, G4, G5 pregnancies, respectively. Rec growth US q4w starting at 24w (need to order 36w US, others have been ordered) BMI 26 (148)- rec 15-25 lb weight gain Orders: - GLUCOSE TOLERANCE, GESTATIONAL SCREEN 1H; Future - CBC AND DIFF NO PLT; Future - TREPONEMA PALLIDUM; Future - CMV IGG ANTIBODY [id number]; Future - CMV IGM ANTIBODY; Future At next visit: review growth US and placenta location, review 28w labs, offer Tdap, Rhogam RTC: 3 weeks Vandana Mandel DO Progress Notes - OB Encounte r - 12/01/2024 - GA:20w2d 12/01/2024 - 20w2d - Vandana Minor DO Care Visit Subjective Follow Up (follow up /20 weeks.) HISTORY OF PRESENT ILLNESS Patient is a 34 y.o. F at 20w2d here for return OB visit. She is doing well today. She denies any vaginal bleeding, loss of fluid, or contractions. She notes good movement. Patient had anatomy ultrasound performed today. Patient states setup technician left the room during the scan and she is concerned that something is wrong. REVIEW OF SYSTEMS Obtained and is negative other than stated in the HPI. Objective PHYSICAL EXAMINATION Vitals: 12/01/24 1042 BP: 112/72 Cuff Site: Right Arm Position: Sitting Cuff Size: Adult Regular Pulse: 72 SpO2: 100% Weight: 70.1 kg (154 lb 8 oz) Body mass index is 27.9 kg/m . General: No acute distress alert and oriented. Abdomen: Soft, gravid, nontender to palpation. Extremities: Warm, nontender, no edema. Assessment & Plan 1. , unspecified gestational age (Primary) FOB: Conor Dating criteria: by LMP c/w FTU Rh: neg Ab: neg Rubella: imm Pap smear: Sep 2020 NILM, neg HPV Aneuploidy and carrier screening: declines Influenza vaccine: declines -Patient advised that I reviewed the images and did not see any overt abnormalities. The placenta is low-lying as it is within 2 cm of the internal cervical os. Strict pelvic rest was advised. I will contact the patient once I have the final read of the anatomy scan. issues: Hx of x4- rec type & screen on admit and TXA prior to delivery Rh negative- rec Rhogam at 28w AMA- declines NIPT, due to addt'l RF LDASA recommended Hx of precip delivery- after last IOL Hx of growth restriction- Neonates weighed 4lb 14oz, 4lb 13oz, and 5lb 5 oz in G2, G4, G5 pregnancies, respectively. Rec growth US q4w starting at 24w (need to order 36w US, others have been ordered) BMI 26 (148)- rec 15-25 lb weight gain 2. Low lying placenta - Inferior placental margin 1.3 cm from the internal cervical os - strict pelvic rest advised - will reassess location at future US 3. Hx of growth restriction - US OB LIMITED ANY TRI TA; Future - US OB LIMITED ANY TRI TA; Future - US OB LIMITED ANY TRI TA; Future At next visit: growth US, reassess placenta location, order 28w labs RTC: 4 weeks Vandana Fitch-Stophel, DO NFORMATICS SUPPORT SPECIALIST Progress Notes - OB Encounte r - 10/27/2024 - GA:15w2d 10/27/2024 - 15w2d - Vandana Minor DO Care Visit Subjective Care HISTORY OF PRESENT ILLNESS Patient is a 34 y.o. F at 15w2d here for return OB visit. She is doing well today. She denies any vaginal bleeding, loss of fluid, or contractions. She thinks she is feeling movement. She is taking LDASA. Patient reports her family is just getting over the flu. REVIEW OF SYSTEMS Obtained and is negative other than stated in the HPI. Objective PHYSICAL EXAMINATION Vitals: 10/27/24 1122 BP: 110/80 Cuff Site: Right Arm Position: Sitting Cuff Size: Adult Regular Pulse: 84 Weight: 68.5 kg (151 lb) Body mass index is 27.26 kg/m . General: No acute distress alert and oriented. Abdomen: Soft, gravid, nontender to palpation. FHR: 150s bpm Extremities: Warm, nontender, no edema. Assessment & Plan 1. , unspecified gestational age (Primary) FOB: Conor Dating criteria: by LMP c/w FTU Rh: neg Ab: neg Rubella: imm Pap smear: Sep 2020 NILM, neg HPV Aneuploidy and carrier screening: declines - anatomy scan ordered and patient advised to schedule at 20w issues: Hx of x4- rec type & screen on admit and TXA prior to delivery Rh negative- rec Rhogam at 28w AMA- declines NIPT, due to addt'l RF LDASA recommended Hx of precip delivery- after last IOL Hx of growth restriction- Neonates weighed 4lb 14oz, 4lb 13oz, and 5lb 5 oz in G2, G4, G5 pregnancies, respectively. Rec growth US q4w starting at 24w (need to order) BMI 26 (148)- rec 15-25 lb weight gain Orders: - US OB BASIC ANATOMY SCREEN SINGLE TA; Future At next visit: anatomy scan, order growth US's RTC: 4 weeks Vandana Mandel DO NFORMATICS SUPPORT SPECIALIST Progress Notes - OB Encounte r - 09/29/2024 - GA:11w2d 09/29/2024 - 11w2d - Vandana Minor DO Initial Visit 34 y.o. at with final ANIRUDH of 04/18/2025, by LMP Subjective HISTORY OF PRESENT ILLNESS Julia Pedro presents for her initial visit. Doing well today. This is not planned . Was using natural family planning to avoid contraception. FOB: Conor, involved She reports regular menses. She has complaints of dizziness and nausea when raising her arms in hot shower. Conservative measures discussed. N/V symptoms are better. She reports occasional light pink spotting. Her risk factors for GDM include: none Early Hb A1c indicated: no Her risk factors for preeclampsia include: AMA 35 or older and hx of FGR LDASA indicated: yes Past obstetrical history: - hx of x4 and SAB x1 - She has a hx of precipitous labor after induction of labor with her last - she has a history of growth restriction x3 - Neonates weighed 4lb 14oz, 4lb 13oz, and 5lb 5 oz in G2, G4, G5 pregnancies, respectively Last pap smear: Sep 2020, NILM with negative HPV. OB History Para Term AB Living 6 4 3 1 1 4 SAB IAB Ectopic Multiple Live Births 1 0 4 # Outcome Date GA Lbr Matrín/2nd Weight Sex Type Anes PTL Lv 6 Current 5 Term 12/01/22 37w6d 03:35 / 00:04 2.41 kg (5 lb 5 oz) M Vag-Spont LUÍS 4 Term 02/25/21 37w3d 2.19 kg (4 lb 13.3 oz) M LUÍS 3 Term 04/18/19 39w0d 2.75 kg (6 lb 1 oz) M Vag LUÍS 2 07/01/17 36w2d 2.21 kg (4 lb 14 oz) M Vag LUÍS 1 SAB 07/2016 SPONTANEOUS No past medical history on file. Past Surgical History: . Laterality Date WISDOM TEETH EXTRACTION 2021 Social History Tobacco Use Smoking status: Never Smokeless tobacco: Never Vaping Use Vaping status: Never Used Substance Use Topics Alcohol use: Not Currently Drug use: Never No family history on file. Current Outpatient Medications Medication Instructions Breast Pump Purchase Electric breast pump for home use. ibuprofen (ADVIL; MOTRIN) 600 mg, Oral, Q 6H PRN, Maximum of 3200 mg in 24 hours. 25/iron fum/folic/dha (-1 ORAL) Take by mouth. No Known Allergies REVIEW OF SYSTEMS Comprehensive review of systems obtained and negative except as stated in the HPI. Clinical Quality Measures: Normal BMI Range: 18 & older: > or = 18.5 and < 25 Body mass index is 26.72 kg/m . 25-29.9, recommend 15-25 lb weigh gain Objective BP 110/60 (Cuff Site: Right Arm, Position: Sitting, Cuff Size: Adult Regular) Pulse 80 Ht 1.585 m (5' 2.4) Wt 67.1 kg (148 lb) LMP 07/12/2024 (Exact Date) BMI 26.72 kg/m PHYSICAL EXAMINATION General: Alert, oriented, cooperative, no acute distress, normal mentation. HEENT: Normocephalic, EOMI, sclerae nonicteric. Neck: Symmetrical, no thyromegaly. Lungs: No wheezing, normal effort, no accessory muscle use. Cardiovascular: Regular rate . Abdomen: Soft, nontender. Pelvic: patient declines as late for US Musculoskeletal: Full ROM in all 4 extremities Skin: No rashes, no pallor. Neurologic: No focal deficits, CN II-XII grossly intact. Psychiatric: Appropriate affect, normal behavior, speech and thought process normal. OBSTETRIC LABS: New OB labs today IMAGING: First trimester US later today Assessment & Plan 1. care, subsequent in first trimester (Primary) FOB: Conor Dating criteria: by LMP c/w FTU Rh: neg Pap smear: Sep 2020 NILM, neg HPV Aneuploidy and carrier screening: declines - reports vaginal spotting occasionally. Pt states unable to complete pelvic exam today as late for first trimester US. Patient to let provider know if spotting continues. - NOB labs today Orders: - VITAMIN D 25 (DEFICIENCY); Future - VARICELLA-ZOSTER V AB, IGG; Future - URINE CULTURE; Future - TYPE & SCREEN; Future - RUBELLA IMMUNE STATUS; Future - HBSAG (HBS); Future - GC CHLAMYDIA TRACH PROBE; Future - ANTI HIV 1/2; Future - ANTI HCV; Future - CBC AND DIFF NO PLT; Future - aspirin (Junior Low Dose Aspirin) 81 mg enteric coated tablet; Take 1 Tablet (81 mg) by mouth once daily. - TYPE & SCREEN - CBC AND DIFF NO PLT - ANTI HCV - ANTI HIV 1/2 - HBSAG (HBS) - RUBELLA IMMUNE STATUS - VARICELLA-ZOSTER V AB, IGG - VITAMIN D 25 (DEFICIENCY) 2. Hx of x4 - rec type & screen on admit and TXA prior to delivery 3. Rh negative - rec Rhogam at 28w 4. AMA - declines NIPT - due to addt'l RF LDASA recommended starting now 5. Hx of precipitous delivery - after last IOL 6. Hx of growth restriction - Neonates weighed 4lb 14oz, 4lb 13oz, and 5lb 5 oz in G2, G4, G5 pregnancies, respectively. - Rec growth US q4w starting at 24w (need to order) At next visit: review NOB labs, ensure taking LDASA Follow up in 4 weeks for routine OB visit COMPLETED BY: Vandana Mandel DO DISTILLERY WORKER GENERAL NFORMATICS SUPPORT SPECIALIST Progress Notes - Phone OB En counter - 09/04/2024 - GA:7w5d 09/04/2024 - 7w5d - Marlen Espino RN Patients 6 . Her significant other Conor involved. HPI: Currently she is feeling Slightly nauseated but the Vitamin B6 is helping. Mood:Good. counseled, information provided, and discussed No past medical history on file. OB History Para Term AB Living 6 4 3 1 1 4 SAB Multiple Live Births 1 0 4 Patient Active Problem List Diagnosis Code Precipitous delivery O62.3 Encounter for supervision of other normal , unspecified trimester Z34.80 Current Outpatient Rx Medication Sig Dispense Refill Breast Pump Purchase Electric breast pump for home use. 1 Each 0 ibuprofen (ADVIL; MOTRIN) 600 mg tablet Take 1 Tablet (600 mg) by mouth every 6 hours if needed for Pain or Temp>101.5F (38.6C). Maximum of 3200 mg in 24 hours. 30 Tablet 1 25/iron fum/folic/dha (-1 ORAL) Take by mouth. Medications have been reviewed by me and are current to the best of my knowledge and ability. Discussed about the following topics, patient will receive information at initial OB visit: Nutrition: counseled, information provided, and discussed -Usual weight gain: 25-35 for women starting with normal weight. Current BMI:24 25 to 29.9: 15-25 lbs 30 or more: 11-20 lbs Physical Activity: counseled, information provided, and discussed Current activity: Inactive, She is going to try and just do some walking. Stays at home with her kids. Calcium intake is not adequate. women need 1,200 mg daily. A serving of food rich in calcium has 250 to 350 mg of calcium. (Examples include 8 oz of milk or fortified juice, 6 to 8 oz of yogurt. Three servings of calcium-rich food and your vitamin typically equal 1,200 mg daily. She does not take supplements. Caffeine: counseled, information provided, and discussed Limit caffeine each day to 200 mg. Coffee at coffee shops generally contain more caffeine, so be mindful of that. Sugar substitute:counseled, information provided, and discussed Fish:counseled, information provided, and discussed Eat only cooked fish- Parasites and bacteria in uncooked fish, such as sushi, can cause illness. Avoid smoked fish due to concerns about listeria. Lunch meats:counseled, information provided, and discussed Listeria-type of bacteria found in soil and water. Listeria can be found in raw meats and vegetables, foods that become contaminated after processing and raw or unpasteurized milk. Avoid foods high in calories from sugar and fat. Iron/protein intake Fluids: Drink 8 to 10 glasses of liquids each day. Increase if the weather is hot. Meds, Herbs, Vitamins: counseled, information provided, and discussed Given list of over the counter medication that could be used in at the approval of the OB provider. Was safe medication list sent through [facility] yes Sleep: adequate Alcohol/Chemical Use: none She does not smoke, and has not smoked in the past. Quit smoking: none Screened for Domestic Abuse: none Toxoplasmosis Precaution: counseled, information provided, and discussed Exposure to cats:NO exposure Avoidance of sauna/hot tubes emphasized. What to expect during visits Bring a list of questions you have for the provider. -Initial Ultrasound between 8-10 weeks -Anatomy ultrasound 18-20 weeks. Frequency of visits: -Monthly until 28 weeks then biweekly until 36 weeks, then weekly until 40 weeks unless problems. -Reviewed Bloodwork to be done at first OB: CBC, Hepatitis B, HIV, RPR, Gonorrhea, Chlamydia, UA, URINE CULTURE, Drug screen, TSH, Blood type. RPR testing also done at 28 weeks and delivery. -RPR at 28 weeks and after delivery. Tdap shot at end of - Need for Rhogam shots based on blood typing done with labwork today. Rhogam shots at 28 weeks and 12 weeks later if still for Rh - mothers. Another Rhogam within 72 hours of delivery if baby Rh positive. Discussed resources available, nurses, OB MD, lacatation customer service consultant and Babystop class. Advised to check on breastpumps with insurance. Informed patient how to contact the triage nurse or the labor and delivery floor if experiencing any symptoms listed below. Warning signs: vaginal bleeding, fluid leaking from your vagina, severe abdominal pain, nausea/vomiting more than 4-5 times a day or if not able to keep anything down, fever more than 100.4, problems with urination and headache that doesn't go away with tylenol. Questions the patient has: Does not have any questions at this time. A/P: OB Education. OB labs and US are ordered. She is not in need of a prescription for vitamins and she has her next OB visit scheduled with Dr. Fitch on 09/29/24 . 20 minutes spent with patient and greater than 50% was spent on counseling. Ginette Espino RN .................... 09/04/2024 9:07 AM NFORMATICS SUPPORT SPECIALIST Last Filed Vital Signs Vital Sign Reading Time Taken Comments Blood Pressure 110/80 01/05/2025 3:05 PM CDT Pulse 80 01/05/2025 3:05 PM CDT Temperature 36.7 C (98.1 F) 12/03/2022 7:55 AM BIOINFORMATICS SUPPORT SPECIALIST Respiratory Rate 16 12/03/2022 7:55 AM BIOINFORMATICS SUPPORT SPECIALIST Oxygen Saturation 100% 12/01/2024 10:42 AM BIOINFORMATICS SUPPORT SPECIALIST Inhaled Oxygen Concentration - - Weight 72.6 kg (160 lb) 01/05/2025 3:05 PM CDT Height 158.5 cm (5' 2.4) 09/29/2024 10:38 AM CS T Body Mass Index 28.89 09/29/2024 10:38 AM BIOINFORMATICS SUPPORT SPECIALIST Plan of Treatment Upcoming Encounters Date Type Department Care Team (Late st Contact Info) Description 04/18/2025 Hospital Encounter [facility] [address] [place] [address] Vandana Mandel DO [address] [place] [address] Health Maintenance Due Date Last Done Comments Hepatitis B series for 19+ (1 of 3 - 19+ 3-dose series) 2008 Pap test for age 21-65 10/03/2023 (Verified in Care Everywhere or Patient Record) COVID-19 vaccine series ( - 2023- season) 2024 Influenza Vaccine (Season Ended) 2025 BMI (ht and wt on same day) for age 18+ 09/29/2025 09/29/2024, 09/04/2024 Depression screening for age 12+ 09/29/2025 09/29/2024 Tetanus booster 12/18/2030 12/18/2020, 02/03/2019 Tdap Completed 12/18/2020, 02/03/2019 HIV for age 15-65 Completed 09/29/2024, 06/08/2022 Hepatitis C screening for age 18-79 Completed 09/29/2024 Pneumococcal series for age 6-49 Aged Out No longer eligible based on patient's age to complete this topic RSV vaccine for adults or (No Doses Required) Completed Procedures Procedure Name Priority Date/Time Associated Diagnosis Comments US OB FOLLOW UP ANY TRI SINGLE TA Routine 01/05/2025 3:01 PM CDT , unspecified gestational age (HC) ANTI HIV 1/2 Routine 09/29/2024 12:00 PM BIOINFORMATICS SUPPORT SPECIALIST care, subsequent in first trimester (HC) ANTI HCV Routine 09/29/2024 12:00 PM BIOINFORMATICS SUPPORT SPECIALIST care, subsequent in first trimester (HC) from Last 3 Months or Most Recently Relevant to Health Maintenance Results * US OB FOLLOW UP ANY TRI SINGLE TA (01/05/2025 3:01 PM CDT) Anatomical Region Laterality Modality , 2or 3 TRIMESTER Ultrasound 01/08/2025 7:01 AM CDT Impressions 01/08/2025 7:01 AM CDT 1. Current ultrasound dating 24 weeks 3 days, ANIRUDH 04/24/2025. 2. Given LMP on the 1st obstetrical ultrasound 07/12/2024. Dating by LMP 25 weeks 2 days. Dictated by Marlen De Jesus MD @ 01/08/2025 7:01:45 AM (Electronically Signed) Narrative 01/08/2025 7:01 AM CDT For Patients: As a result of the Cures Act, medical imaging exams and procedure reports are released immediately into your electronic medical record. You may view this report before your referring provider. If you have questions, please contact your health care provider. INDICATION: . Unspecified gestational age. Check growth. TECHNIQUE: Ultrasound OB pelvis transabdominal. Real-time rocha-scale imaging of the fetus was performed as well as color Doppler and spectral Doppler analysis of the umbilical artery. COMPARISON: 09/29/2024 and 12/01/2024 FINDINGS: Sonographic imaging demonstrates a single living intrauterine gestation. Fetus demonstrates a regular cardiac rate of 155 beats per minute. Fetus has a breech orientation. The placenta lies posterior without evidence of placenta previa (inferior margin 4.2 cm from the internal cervical os). Amniotic fluid volume appears normal delete that. Single deepest vertical pocket: 5.6 cm. Cervical length 4.5 cm. Cord S/D Doppler 2.3. The composite ultrasound gestational age is calculated at 24 weeks 3 days with an estimated sonographic due date of 04/24/2025. The estimated weight is 681 grams which lies at the 9%. The following biometric measurements were obtained: Biparietal diameter: 5.8 cm, 24 weeks 0 days, 7th percentile. Head circumference: 22.9 cm, 25 weeks 0 days, 16th percentile. Abdominal circumference: 19.6 cm, 24 weeks 2 days, 14th percentile. Femur length: 4.3 cm, 24 weeks 2 days, 11th percentile. Procedure Note Jaime De Jesus MD - 01/08/2025 For Patients: As a result of the Cures Act, medical imagingexams and procedure reports are released immediately into your electronicmedical record. You may view this report before your referring provider.If you have questions, please contact your health care provider. INDICATION: . Unspecified gestational age. Check growth. TECHNIQUE: Ultrasound OB pelvis transabdominal. Real-time rocha-scale imaging of thefetus was performed as well as color Doppler and spectral Doppler analysisof the umbilical artery. COMPARISON: 09/29/2024 and 12/01/2024 FINDINGS: Sonographic imaging demonstrates a single living intrauterine gestation.Fetus demonstrates a regular cardiac rate of 155 beats per minute. Fetushas a breech orientation. The placenta lies posterior without evidence ofplacenta previa (inferior margin 4.2 cm from the internal cervical os).Amniotic fluid volume appears normal delete that. Single deepest verticalpocket: 5.6 cm. Cervical length 4.5 cm. Cord S/D Doppler 2.3. The composite ultrasound gestational age is calculated at 24 weeks 3 dayswith an estimated sonographic due date of 04/24/2025. The estimated fetalweight is 681 grams which lies at the 9%. The following biometric measurements were obtained: Biparietal diameter: 5.8 cm, 24 weeks 0 days, 7th percentile. Head circumference: 22.9 cm, 25 weeks 0 days, 16th percentile. Abdominal circumference: 19.6 cm, 24 weeks 2 days, 14th percentile. Femur length: 4.3 cm, 24 weeks 2 days, 11th percentile. IMPRESSION: 1. Current ultrasound dating 24 weeks 3 days, ANIRUDH 04/24/2025. 2. Given LMP on the 1st obstetrical ultrasound 07/12/2024. Dating by LMP25 weeks 2 days. Dictated by Marlen De Jesus MD @ 01/08/2025 7:01:45 AM (Electronically Signed) [employer] Technology[employer]iele DO US Final Result * ANTI HCV (09/29/2024 12:00 PM BIOINFORMATICS SUPPORT SPECIALIST) Pathologist [facility] HEPATITIS C ANTIBODY NON-REACTI VE NON-REACT GURWINDER Repair Report- carlyn Bowens Comment: HCV antibody was non-reactive. There is no laboratory evidence of HCV infection. In most cases, no further action is required. However, if recent HCV exposure is suspected, a test for HCV RNA (test code 85099) is suggested. For additional information please refer to http://OrderGroove.Visionary Fun/faq/OAD60m2 (This link is being provided for informational/ educational purposes only.) Blood BLOOD SPECIMEN / Unknown 09/29/2024 12:00 PM BIOINFORMATICS SUPPORT SPECIALIST 09/29/2024 12:02 PM BIOINFORMATICS SUPPORT SPECIALIST Narrative [email or web address] - 09/30/2024 3:14 AM BIOINFORMATICS SUPPORT SPECIALIST FASTING:NO FASTING: NO [facility] Timothy FitchSplitcast TechnologyDaniele DO SEND OUTS Final Result [employer] [facility] [address] [place] [address], [facility] [address] [place] [address] * ANTI HIV 1/2 (09/29/2024 12:00 PM BIOINFORMATICS SUPPORT SPECIALIST) Pathologist [facility] HIV AG/AB, 4TH GEN NON-REACT GURWINDER NON-REACT GURWINDER [facility] Comment: HIV-1 antigen and HIV-1/HIV-2 antibodies were not detected. There is no laboratory evidence of HIV infection. PLEASE NOTE: This information has been disclosed to you from records whose confidentiality may be protected by state law. If your state requires such protection, then the state law prohibits you from making any further disclosure of the information without the specific written consent of the person to whom it pertains, or as otherwise permitted by law. A general authorization for the release of medical or other information is NOT sufficient for this purpose. For additional information please refer to http://education.Visionary Fun/faq/KQR676 (This link is being provided for informational/ educational purposes only.) The performance of this assay has not been clinically validated in patients less than 2 years old. Blood BLOOD SPECIMEN / Unknown 09/29/2024 12:00 PM BIOINFORMATICS SUPPORT SPECIALIST 09/29/2024 12:02 PM BIOINFORMATICS SUPPORT SPECIALIST Narrative [facility] - 09/30/2024 3:14 AM BIOINFORMATICS SUPPORT SPECIALIST FASTING:NO FASTING: NO Vandana Mandel DO SEND OUTS Final Result [facility] [address] [place] [address], [facility] [address] [place] [address] from Last 3 Months or Most Recently Relevant to Health Maintenance Insurance [facility] Advance Directives Documents on File Type Date Recorded Patient Head Cashier Expl anation Treatment Guidelines 12/01/2022 * Full Code (Latest Code Status on File) Date Activated Date Inactivated Comments 12/02/2022 9:00 AM 12/03/2022 3:14 PM Question Answer Comments Code Status Discussion: Discussed Care Teams Line Dancer Relationship Specialty Start Date End Date Vandana Mandel DO [address] [facility] [place] [address] PCP - General Obstetrics and Gynecology 11/27/22
--- OUTSIDE RECORDS SUMMARY | 2025-03-17 00:58 | XMS_ITS | Encounter Summary ---
Author Organization [facility] Address [address] [place] [address] Care Team Providers Care Petroleum Refinery Worker Name Role Phone Katarzyna Avitia CNM Primary Care Provider + [phone] Antionette Nelson APRN CNM Unavailable Unavailable Katarzyna Avitia CNM Unavailable [phone] Lesley Mistry MD Unavailable Unavaila ble Antionette Nelson APRN CNM Unavailable Unavailable Antionette Nelson APRN CNM Unavailable Unavailable Diogenes Soares MD Unavailable [phone] Diogenes Soares MD Unavailable [phone] Ebony Gandara MD Unavailable [phone] Nighat Pendleton MD Unavailable [phone] Encounter Details Date Type Department Care Team (Late st Contact Info) Description 03/19/2019 [facility]'s [address] [place] [id number] Silvana Avitia CNM [address] [place] [address] Social History Tobacco Use Types Packs/Day Years [...] on file Legal Sex Female 3:16 AM BANDER AND CELLOPHANER MACHINE Gender Identity Not on file Sexual Orientation Straight 11/23/2018 11 :37 AM BANDER AND CELLOPHANER MACHINE documented as of this encounter Plan of Treatment Not on file documented as of this encounter Visit Diagnoses Not on filedocumented in this encounter Additional Health Concerns Assessment Noted Time PHQ-9 Depression Total Score: 0 08/12/20 17 1:29 PM BANDER AND CELLOPHANER MACHINE documented as of this encounter Care Teams Petroleum Refinery Worker Relationship Specialty Start Date End Date Katarzyna Avitia CNM PCP - General dowel sticker operator 03/06/19 Antionette Nelson APRN CNM Assigned OBGYN Provider 10/13/20 10/19/20 Katarzyna Avitia CNM [address] [address] Assigned OBGYN Provider 08/18/20 Lesley Mistry MD Assigned OBGYN Provider 09/15/20 10/12/20 Antionette Nelson APRN CNM Assigned OBGYN Provider 07/19/20 08/17/20 Antionette Nelson APRN CNM Assigned OBGYN Provider 09/01/20 09/14/20 Diogenes Soares MD [address] [place] [address] [address] [place], [place] [address] Assigned OBGYN Provider 02/02/21 Diogenes Soares MD [address] [place] [address] Assigned OBGYN Provider 12/29/20 1 Ebony Gandara MD [address] [place], [place] [address] Assigned OBGYN Provider 01/26/21 1 Nighat Pendleton MD [address] [place], [place] [address] Assigned OBGYN Provider 04/25/22 documented as of this encounter
--- OUTSIDE RECORDS SUMMARY | 2025-03-17 00:59 | XMS_ITS | Encounter Summary ---
Author Organization [facility] Address [address] [place] [address] Care Team Providers Care Paper Mill Superintendent Name Role Phone Katarzyna Avitia CNM Primary Care Provider + [phone] Antionette Nelson APRN CNM Unavailable Unavailable Katarzyna Avitia CNM Unavailable [phone] Lesley Mistry MD Unavailable Unavaila ble Antionette Nelson APRN CNM Unavailable Unavailable Antionette Nelson APRN CNM Unavailable Unavailable Diogenes Soares MD Unavailable [phone] Diogenes Soares MD Unavailable [phone] Ebony Gandara MD Unavailable [phone] Nighat Pendleton MD Unavailable [phone] Encounter Details Date Type Department Care Team (Late st Contact Info) Description 04/10/2019 [facility] Medical [facility]'s [address] [place] [address] Pinky Jacob APRN [facility] [address] [place] [address] Social History Tobacco Use Types Packs/Day Years [...] on file Legal Sex Female 3:16 AM LICENSING COORDINATOR Gender Identity Not on file Sexual Orientation Straight 11/23/2018 11 :37 AM LICENSING COORDINATOR documented as of this encounter Plan of Treatment Not on file documented as of this encounter Visit Diagnoses Not on filedocumented in this encounter Additional Health Concerns Assessment Noted Time PHQ-9 Depression Total Score: 0 08/12/20 17 1:29 PM LICENSING COORDINATOR documented as of this encounter Care Teams Paper Mill Superintendent Relationship Specialty Start Date End Date Katarzyna Avitia CNM PCP - General industrial truck mechanic 03/06/19 Antionette Nelson APRN CNM Assigned OBGYN Provider 10/13/20 10/19/20 Katarzyna Avitia CNM [address] [address] Assigned OBGYN Provider 08/18/20 Lesley Mistry MD Assigned OBGYN Provider 09/15/20 10/12/20 Antionette Nelson APRN CNM Assigned OBGYN Provider 07/19/20 08/17/20 Antionette Nelson APRN CNM Assigned OBGYN Provider 09/01/20 09/14/20 Diogenes Soares MD [address] [address] [place], [place] [address] Assigned OBGYN Provider 02/02/21 Diogenes Soares MD [address] [place] [address] Assigned OBGYN Provider 12/29/20 1 Ebony Gandara MD [address] [place], [place] [address] Assigned OBGYN Provider 01/26/21 1 Nighat Pendleton MD [address] [place], [place] [address] Assigned OBGYN Provider 04/25/22 documented as of this encounter
== END 2025-03-16 13:10 | disposition home or self-care (01) ==
LOC: US 13:09
PROVIDERS: Visit Provider Obstetrics & Gynecology
DX: O36.5930 Maternal care for other known or suspected poor fetal growth, third trimester, not applicable or unspecified (principal); Z3A.35 35 weeks gestation of pregnancy
CPT/HCPCS: 76815; 76820; 87081; 87653

== ENCOUNTER 2025-03-16 14:15 | Outpatient (CLI) | payer BC, MEDICAID, SELFPAY | END 2025-03-16 14:16 | disposition home or self-care (01) | LOC: NFLDREF 03-21 01:30 | PROVIDERS: Visit Provider Obstetrics & Gynecology | DX: O36.5990 Maternal care for other known or suspected poor fetal growth, unspecified trimester, not applicable or unspecified (principal); Z34.90 Encounter for supervision of normal pregnancy, unspecified, unspecified trimester; O36.5930 Maternal care for other known or suspected poor fetal growth, third trimester, not applicable or unspecified | CPT/HCPCS: 87081; 87653 ==

== ENCOUNTER 2025-03-23 13:11 | Outpatient (CLI) | payer BC, MEDICAID, SELFPAY ==
--- NOTE | 2025-03-23 13:00 | CRLHL7_ITS ---
For Patients: As a result of the Century Cures Act, medical imaging exams and procedure reports are released immediately into your electronic medical record. You may view this report before your referring provider. If you have questions, please contact your health care provider. OB ULTRASOUND LMP: 07/12/2024. ANIRUDH by LMP or US: 04/18/2025. GA: 36 w, 2 d. Single. Comparison: 03/16/2025, 03/09/2025, 03/02/2025. INDICATION: IUGR. TECHNIQUE: Real time grayscale imaging of the fetus was performed. Transabdominal. CERVIX: Not visualized. POSITIONING: Vertex. AMNIOTIC FLUID: 14.2 cm MEI. 6.2 cm. SDP (N: greater than 2 x 1 cm) PLACENTA: Technique: Transabdominal. PLACENTA POSITION: Posterior. DOPPLER: heart rate: 128 bpm. Umbilical artery: 2.6 S/D. Greater than 34 we = less than 3.5. BIOMETRY: BPD: 7.7 cm. 30 w, 5 d, <3 percent. HC: 29.4 cm. 32 w, 3 d, <3 percent. AC: 29.1 cm. 33 w, 1 d, <3 percent. FL: 6.2 cm. 32 w, 1 d, <3 percent. FL/AC ratio: 21.4 percent. HC/AC ratio: 1.0. EFW: 1996 g. Weight: 4 lbs, 6 oz. age by this US: 32 w, 1 d. ANIRUDH by this US: 05/17/2025. Percentile by ANIRUDH: <3 percent. IMPRESSION: 1. Sonographic gestational age 32 weeks 1 day and sonographic due date 05/17/2025. Sonographic age is 4 weeks 1 day behind clinical age. 2. Estimated weight less than 3rd percentile. BPD, HC, AC, and FL are all less than 3rd percentile. 3. Umbilical artery spectral Doppler evaluation performed. S/D ratio 2.6, within normal limits. 4. Normal amniotic fluid with MEI 14.2 cm. 5. The umbilical cord wraps around the baby???s neck 2.5 times. Andriy Kelly M.D. [facility] [employer] [email or web address] bach/Dictated by: Andriy Kelly MD @ 03/23/2025 4:10:00 PM (Electronically Signed)
--- OUTSIDE RECORDS SUMMARY | 2025-03-24 00:25 | XMS_ITS | Encounter Summary ---
Author Organization [facility] Address [address] [place] [address] Care Team Providers Care Tank Assembler Name Role Phone No Ref-Primary, Physician Primary Care Provider Katarzyna Avitia CNM Primary Care Provider + [phone] Antionette Nelson APRN CNM Unavailable Unavailable Katarzyna AvitiaM Unavailable [phone] Lesley Mistry MD Unavailable Unavaila ble Antionette Nelson APRN CNM Unavailable Unavailable Antionette Nelson APRN CNM Unavailable Unavailable Diogenes Soares MD Unavailable [phone] Diogenes Soares MD Unavailable [phone] Ebony Gandara MD Unavailable [phone] Nighat Pendleton MD Unavailable [phone] Reason for Visit * Reason Onset Date Comments Care 02/06/2019 Encounter Details Date Type Department Care Team (Late st Contact Info) Description 02/06/2019 [facility] Medical Advice [facility] Women's [facility] [address] [place] [address] Katarzyna Avitia, CNM [address] [place] [address] Care Social History Tobacco Use Types Packs/Day [...] on file Legal Sex Female 3:16 AM DRESS CAP MAKER Gender Identity Not on file Sexual Orientation Straight 11/23/2018 11 :37 AM DRESS CAP MAKER documented as of this encounter Plan of Treatment Not on file documented as of this encounter Visit Diagnoses Not on filedocumented in this encounter Additional Health Concerns Assessment Noted Time PHQ-9 Depression Total Score: 0 08/12/20 17 1:29 PM DRESS CAP MAKER documented as of this encounter Care Teams Tank Assembler Relationship Specialty Start Date End Date No Ref-Primary, Physician PCP - General 07/30/17 03/05/19 Katarzyna Avitia CNM PCP - General content specialist 03/06/19 Antionette Nelson APRN CNM Assigned OBGYN Provider 10/13/20 10/19/20 Katarzyna Avitia CNM [address] [address] Assigned OBGYN Provider 08/18/20 Lesley Mistry MD Assigned OBGYN Provider 09/15/20 10/12/20 Antionette Nelson APRN CNM Assigned OBGYN Provider 07/19/20 08/17/20 Antionette Nelson APRN CNM Assigned OBGYN Provider 09/01/20 09/14/20 Diogenes Soares MD [address] [place] [address] Assigned OBGYN Provider 02/02/21 Diogenes Soares MD [address] [place] [address] Assigned OBGYN Provider 12/29/20 1 Ebony Gandara MD [address] [place], [place] [address] Assigned OBGYN Provider 01/26/21 1 Nighat Pendleton MD [address] [place], [place] [address] Assigned OBGYN Provider 04/25/22 documented as of this encounter
--- OUTSIDE RECORDS SUMMARY | 2025-03-24 00:25 | XMS_ITS | Encounter Summary ---
Author Organization [facility] Address [address] [place] [address] Care Team Providers Care Geek Squad Agent Name Role Phone No Ref-Primary, Physician Primary Care Provider Katarzyna Avitia CNM Primary Care Provider + [phone] Antionette Nelson APRN CNQuang Unavailable Unavailable Katarzyna AvitiaM Unavailable [phone] Lesley Mistry MD Unavailable Unavaila ble Antionette Nelson APRN, CNM Unavailable Unavailable Antionette Nelson APRNM Unavailable Unavailable Diogenes Soares MD Unavailable [phone] Diogenes Soares MD Unavailable [phone] Ebony Gandara MD Unavailable [phone] Nighat Pendleton MD Unavailable [phone] Encounter Details Date Type Department Care Team (Late st Contact Info) Description 12/21/2018 [facility] Medical Advice [facility] Women's [address] [place] [address] Antionette Nelson APRN CNM Social [...] on file Legal Sex Female 3:16 AM CONTINUING EDUCATION SPECIALIST Gender Identity Not on file Sexual Orientation Straight 11/23/2018 11 :37 AM CONTINUING EDUCATION SPECIALIST documented as of this encounter Plan of Treatment Not on file documented as of this encounter Visit Diagnoses Not on filedocumented in this encounter Additional Health Concerns Assessment Noted Time PHQ-9 Depression Total Score: 0 08/12/20 1:29 PM CONTINUING EDUCATION SPECIALIST documented as of this encounter Care Teams Geek Squad Agent Relationship Specialty Start Date End Date No Ref-Primary, Physician PCP - General 07/30/17 03/05/19 Katarzyna Avitia CNM PCP - General geophysical prospecting surveyor 03/06/19 Antionette Nelson APRN CNM Assigned OBGYN Provider 10/13/20 10/19/20 Katarzyna Avitia CNM [address] [address] Assigned OBGYN Provider 08/18/20 Lesley Msitry MD Assigned OBGYN Provider 09/15/20 10/12/20 Antionette Nelson APRN CNM Assigned OBGYN Provider 07/19/20 08/17/20 Antionette Nelson APRN CNM Assigned OBGYN Provider 09/01/20 09/14/20 Diogenes Soares MD [address] [place] [address] [address] [place], [place] [address] Assigned OBGYN Provider 02/02/21 Diogenes Soares MD [address] [place], [place] [address] Assigned OBGYN Provider 12/29/20 1 Ebony Gandara MD [address] [place] [address] Assigned OBGYN Provider 01/26/21 1 Nighat Pendleton MD [address] [place] [address] Assigned OBGYN Provider 04/25/22 documented as of this encounter
--- OUTSIDE RECORDS SUMMARY | 2025-03-24 00:26 | XMS_ITS | Encounter Summary ---
Author Organization [facility] Address [address] [place] [address] Care Team Providers Care Telesales Professional Name Role Phone No Ref-Primary, Physician Primary Care Provider Katarzyna Avitia CNM Primary Care Provider + [phone] Antionette Nelson APRN CNM Unavailable Unavailable Katarzyna AvitiaM Unavailable [phone] Lesley Mistry MD Unavailable Unavaila ble Antionette Nelson APRN CNM Unavailable Unavailable Antionette Nelson APRN CNM Unavailable Unavailable Diogenes Soares MD Unavailable [phone] Diogenes Soares MD Unavailable [phone] Ebony Gandara MD Unavailable [phone] Nighat Pendleton MD Unavailable [phone] Reason for Visit * Reason Onset Date Comments Care 02/07/2019 Encounter Details Date Type Department Care Team (Late st Contact Info) Description 02/07/2019 [facility] Medical Advice [facility] Women's [facility] [address] [place] [address] Katarzyna Avitia, CNM [address] [place] [address] Care Social History Tobacco Use Types Packs/Day [...] on file Legal Sex Female 3:16 AM JUNIOR ACCOUNTING CLERK Gender Identity Not on file Sexual Orientation Straight 11/23/2018 11 :37 AM JUNIOR ACCOUNTING CLERK documented as of this encounter Miscellaneous Notes * Telephone Encounter - Katarzyna Avitia CNM - 02/09/2019 10:29 AM CDT I have contacted the Patient Real Estate Office Manager at [facility]. She will reach out to the patient and hopefully be able to assist her in her request. Please le the patient know that someone will be contacting her. Thank you, Katarzyna Avitia APRN, CNM * Telephone Encounter - Nory Forrest RN - 02/07/2019 2:18 PM CDT Katarzyna are you aware of where to direct this pt? Nory Erickson R.N. [facility] documented in this encounter Plan of Treatment Not on file documented as of this encounter Visit Diagnoses Not on filedocumented in this encounter Additional Health Concerns Assessment Noted Time PHQ-9 Depression Total Score: 0 08/12/20 17 1:29 PM JUNIOR ACCOUNTING CLERK documented as of this encounter Care Teams Telesales Professional Relationship Specialty Start Date End Date No Ref-Primary, Physician PCP - General 07/30/17 03/05/19 Katarzyna Avitia CNM PCP - General solutions executive security 03/06/19 Antionette Nelson APRN CNM Assigned OBGYN Provider 10/13/20 10/19/20 Katarzyna Avitia CNM [address] [facility] [address] [place] [address] Assigned OBGYN Provider 08/18/20 Lesley Mistry MD Assigned OBGYN Provider 09/15/20 10/12/20 Antionette Nelson APRN CNM Assigned OBGYN Provider 07/19/20 08/17/20 Antionette Nelson APRN CN Assigned OBGYN Provider 09/01/20 09/14/20 Diogenes Soares MD [address] [place] [address] Assigned OBGYN Provider 02/02/21 Diogenes Soares MD [address] [place], [place] [address] Assigned OBGYN Provider 12/29/20 1 Ebony Gandara MD [address] [place], [place] [address] Assigned OBGYN Provider 01/26/21 1 Nighat Pendleton MD [address] [place], [place] [address] Assigned OBGYN Provider 04/25/22 documented as of this encounter
--- OUTSIDE RECORDS SUMMARY | 2025-03-24 00:26 | XMS_ITS | Clinical Summary ---
Author Organization [facility] Address [address] [place] [address] Care Team Providers Care Licensed Marine Engineer Name Role Phone Katarzyna Avitia NATALIEQuang Primary Care Provider + [phone] Allergies No known active allergies Medications Vit-Fe [...] Answer Date Recorded PHQ-2 Score 0 11/29/2018 [place] Depression Scale Answer Date Recorded [place] Depression Score 1 02/26/2021 Last EPDS Self [...] on file Legal Sex Female 3:16 AM CIRCUIT MANAGER Gender Identity Not on file Sexual Orientation Straight 11/23/2018 11 :37 AM CIRCUIT MANAGER Last Filed Vital Signs Vital Sign Reading [...] Plan of Treatment Not on file Insurance [email or web address] Member Subscriber Plan / Payer (Ef fective 2019-Present) Name:JULIA MELCHOR Relation to Subscriber:Self Name:Julia Pedro Payer ID:[id number] (NAIC) Type:PPO Address: [facility] [id number] [place] [id number] Advance Directives For more information, please contact: [phone] * Full Code (Latest Code Status on File) Date Activated Date Inactivated Comments 02/27/2021 7:07 AM 02/27/2021 6:38 PM All basic and advanced life-sustaining interventions are performed as appropriate Question Answer Comments Code status determined by: Discussion with patie nt/ legal decision maker Care Teams Licensed Marine Engineer Relationship Specialty Start Date End Date Katarzyna Avitia CNM PCP - General pantograph watcher 03/06/19
--- OUTSIDE RECORDS SUMMARY | 2025-03-24 00:26 | XMS_ITS | Encounter Summary ---
Author Organization [facility] Address [address] [place] [address] Care Team Providers Care Clinical Psychiatrist Name Role Phone Katarzyna Avitia CNM Primary Care Provider + [phone] Antionette Nleson APRN CNM Unavailable Unavailable Katarzyna Avitia CNM Unavailable [phone] Lesley Mistry MD Unavailable Unavaila ble Antionette Nelson APRN CNM Unavailable Unavailable Antionette Nelson APRN CNM Unavailable Unavailable Diogenes Soares MD Unavailable [phone] Diogenes Soares MD Unavailable [phone] Ebony Gandara MD Unavailable [phone] Nighat Pendleton MD Unavailable [phone] Encounter Details Date Type Department Care Team (Late st Contact Info) Description 11/21/2019 [facility] [place] [facility] [facility] [address] [place] [phone] Mitul Lopez, WENDY Social History Tobacco Use Types Packs/Day Years Used Date Smoking Tobacco: Never Smokeless Tobacco: Never Alcohol Use Standard Drinks/Week Comments No 0 (1 standard drink = 0.6 oz pur e alcohol) PHQ-2 Answer Date Recorded PHQ-2 Score 0 11/29/2018 [place] Depression Scale Answer Date Recorded [place] Depression Score 3 04/19/2019 Last EPDS Self Harm Result Not on file 04/19 Education Answer Date Recorded What is the highest level of school you have completed or the highest degree you have received? Bachelor's degree (e.g., BA, AB, BS) 11/29/2018 Comments No Sex and Gender Information Value Date Recorded Sex Assigned at Not on file Legal Sex Female 3:16 AM HIGH PRESSURE KETTLE OPERATOR Gender Identity Not on file Sexual Orientation Straight 11/23/2018 11 :37 AM HIGH PRESSURE KETTLE OPERATOR documented as of this encounter Plan of Treatment Not on file documented as of this encounter Visit Diagnoses Not on filedocumented in this encounter Additional Health Concerns Assessment Noted Time PHQ-9 Depression Total Score: 0 08/12/20 17 1:29 PM HIGH PRESSURE KETTLE OPERATOR documented as of this encounter Care Teams Clinical Psychiatrist Relationship Specialty Start Date End Date Katarzyna Avitia CNM PCP - General assistant elementary teacher 03/06/19 Antionette Nelson APRN CNM Assigned OBGYN Provider 10/13/20 10/19/20 Katarzyna Avitia CNM [address] [facility] [address] [place] [address] Assigned OBGYN Provider 08/18/20 Lesley Mistry MD Assigned OBGYN Provider 09/15/20 10/12/20 Antionette Nelson APRN CNM Assigned OBGYN Provider 07/19/20 08/17/20 Antionette Nelson APRN CNM Assigned OBGYN Provider 09/01/20 09/14/20 Diogenes Soares MD [address] [place] [address] Assigned OBGYN Provider 02/02/21 Diogenes Soares MD [address] [place] [address] Assigned OBGYN Provider 12/29/20 1 Ebony Gandara MD [address] [place], [place] [address] Assigned OBGYN Provider 01/26/21 1 Nighat Pendleton MD [address] [place], [place] [address] Assigned OBGYN Provider 04/25/22 documented as of this encounter
--- OUTSIDE RECORDS SUMMARY | 2025-03-24 00:26 | XMS_ITS | Encounter Summary ---
Author Organization [facility] Address [address] [place] [address] Care Team Providers Care Assembly Technician Name Role Phone Katarzyna Avitia CNM Primary Care Provider + [phone] Antionette Nelson APRN CNM Unavailable Unavailable Katarzyna Avitia CNM Unavailable [phone] Lesley Mistry MD Unavailable Unavaila ble Antionette Nelson APRN CNM Unavailable Unavailable Antionette Nelson APRN CNM Unavailable Unavailable Diogenes Soares MD Unavailable [phone] Diogenes Soares MD Unavailable [phone] Ebony Gandara MD Unavailable [phone] Nighat Pendleton MD Unavailable [phone] Encounter Details Date Type Department Care Team (Late st Contact Info) Description 04/10/2019 [facility] [place] [facility] [address] [place] [address] Pinky Jacob APRN CNM [address] [address] Social History Tobacco Use Types Packs/Day Years [...] on file Legal Sex Female 3:16 AM TRANSFORMER MAKER Gender Identity Not on file Sexual Orientation Straight 11/23/2018 11 :37 AM TRANSFORMER MAKER documented as of this encounter Plan of Treatment Not on file documented as of this encounter Visit Diagnoses Not on filedocumented in this encounter Additional Health Concerns Assessment Noted Time PHQ-9 Depression Total Score: 0 08/12/20 17 1:29 PM TRANSFORMER MAKER documented as of this encounter Care Teams Assembly Technician Relationship Specialty Start Date End Date Katarzyna Avitia CNM PCP - General automatic dispenser mechanic 03/06/19 Antionette Nelson APRN CNM Assigned OBGYN Provider 10/13/20 10/19/20 Katarzyna Avitia CNM [address] [address] Assigned OBGYN Provider 08/18/20 Lesley Mistry MD Assigned OBGYN Provider 09/15/20 10/12/20 Antionette Nelson APRN CNM Assigned OBGYN Provider 07/19/20 08/17/20 Antionette Nelson APRN CNM Assigned OBGYN Provider 09/01/20 09/14/20 Diogenes Soares MD [address] [place] [address] Assigned OBGYN Provider 02/02/21 Diogenes Soares MD [address] [place] [address] Assigned OBGYN Provider 12/29/20 1 Ebony Gandara MD [address] [place], [place] [address] Assigned OBGYN Provider 01/26/21 1 Nighat Pendleton MD [address] [place], [place] [address] Assigned OBGYN Provider 04/25/22 documented as of this encounter
--- OUTSIDE RECORDS SUMMARY | 2025-03-24 00:26 | XMS_ITS | Clinical Summary ---
Author Organization [facility] Address [address] [place] [address] Care Team Providers Care Gericare Aide Teacher Name Role Phone Vandana Mandel DO Primary [...] Date Diagnosed Date growth restriction antepartum 01/08/2025 [facility] Supervision of high-risk Overview (01/08/2025): SRO MPP - Completed [x] Patient name: Julia Pedro : 1990 Age: 34 y.o. Date of SRO: 01/08/2025 Estimated Date of Delivery: 04/18/25 Gest Age: 25w5d G/P: Current BMI: 28.89 Reason for referral: L2 for FGR REFERRING PROVIDER/CLINIC LOCATION/FAX #: Gericare Aide Teacher Role and Specialty Contact Info Address Start End Comments Vandana Mandel DO General (Obstetrics and Gynecology) [address] [facility] [address] 11/27/2022 - - Primary MD approves scheduling of recommended ultrasounds/testing: Yes Please schedule the following: [x] Peters [] Multiples: [] Consult [x] Ultrasound: - Level 2 (including echo) - 75 minutes [] Lab: [x] Genetic Counseling [x] Before [] After []15 [x] 30 []45 []CVS []Amnio [] BMI > 40 [] Die Mechanic - Language [] [place] Insurance: Location Specialty Days Any [facility] Clinic [x] In-person [] Virtual [] Either N/A Comments: RN: ALPHONSO CASTRO RN Analytics Specialist: GC: SANTOS MCKEON/Provider: Date:01/08/2025 Urgency: 4-10 days []Can be sooner [] Can be split Julia Pedro : 1990 [facility] ULTRASOUND/TESTING PATIENT [facility] CONSULT ON REFERRING PROVIDER/CLINIC LOCATION/FAX #: Gericare Aide Teacher Role and Specialty Contact Info Address Start End Comments Vandana Mandel DO General (Obstetrics and Gynecology) [address] [facility] [address] 11/27/2022 - - Primary provider approves scheduling of recommended ultrasounds/testing: Yes Support person name: Die Mechanic: No ULTRASOUND TYPE: L2 REASON FOR VISIT: [...] 28w growth restriction- EFW 9%tile, referred to [facility] 01/08 AMA- declines NIPT, due to addt'l [...] Transcribe Orders [facility] [address] [facility] [address] [place] [address] Vandana Beaulieu DO 01/05/2025 3:15 PM CDT OB Encounter [facility] [address] [place] [address] Vandana Beaulieu DO Care (28 weeks ) 01/05/2025 2:00 PM CDT - 01/05/2025 11:59 PM CDT Hospital Encounter [facility] [address] [place] [address] Vandana eBaulieu DO , unspecified gestational age (HC) 01/05/2025 Travel 01/02/2025 Orders Only [facility] [address] [place] [address] Vandana Beaulieu DO <No scans attached> from [...] , Ivan Cheung MD Delivery Location:Hospital ( [facility] ) Current Summary Episode Dates Number of Fetuses Estimated Date of Delivery 09/04/2024 - Present (03/24/2025) 04/18/2025 (set by Vandana Mandel DO on 09/29/2024 based on Last Menstrual Period on 07/12/2024 (Exact Date)) Dating Summary Based On ANIRUDH GA Diff Last Menstrual Period on 07/12/2024 (Exact Date) 04/18/2025 Working Ultrasound on 09/29/2024 04/11/2025 +1w0d GA:12w2d Alternate ANIRUDH Entry 04/18/2025 Same Overview and Plan Delivery Plans Planned delivery method:Vaginal Vitals Pregravid Weight Height TWG (As of 03/24/2025) Pregrav id BMI 1.585 m (5' 2.4) [...] TREPONEMA PALLIDUM; Future - CMV IGG ANTIBODY 35230; Future - CMV IGM ANTIBODY; Future At [...] had anatomy ultrasound performed today. Patient states trim technician left the room during the scan [...] labs RTC: 4 weeks Vandana Fitch-Stophel, DO SPECIALIST Progress Notes - OB Encounte r [...] US's RTC: 4 weeks Vandana Mandel DO SPECIALIST Progress Notes - OB Encounte r - 09/29/2024 - GA:11w2d 09/29/2024 - 11w2d - Vnadana Minor DO Initial Visit 34 y.o. at [...] 0 4 # Outcome Date GA Lbr Martín/2nd Weight Sex Type Anes PTL Lv 6 [...] OB visit COMPLETED BY: Vandana Mandel DO PROCEDURES RN SPECIALIST Progress Notes - Phone OB En [...] provider. Was safe medication list sent through [email or web address] yes Sleep: adequate Alcohol/Chemical Use: none She [...] Discussed resources available, nurses, OB MD, lacatation child development consultant and Babystop class. Advised to check [...] Ginette Espino RN .................... 09/04/2024 9:07 AM SPECIALIST Last Filed Vital Signs Vital Sign Reading Time Taken Comments Blood Pressure 110/80 01/05/2025 3:05 PM CDT Pulse 80 01/05/2025 3:05 PM CDT Temperature 36.7 C (98.1 F) 12/03/2022 7:55 AM HVAC SPECIALIST Respiratory Rate 16 12/03/2022 7:55 AM HVAC SPECIALIST Oxygen Saturation 100% 12/01/2024 10:42 AM HVAC SPECIALIST Inhaled Oxygen Concentration - - Weight 72.6 kg (160 lb) 01/05/2025 3:05 PM CDT Height 158.5 cm (5' 2.4) 09/29/2024 10:38 AM CS T Body Mass Index 28.89 09/29/2024 10:38 AM HVAC SPECIALIST Plan of Treatment Upcoming Encounters Date Type Department Care Team (Late st Contact Info) Description 04/18/2025 Hospital Encounter [facility] [address] [place] [address] Vandana Mandel DO [address] [place] [address] Health Maintenance Due Date Last Done Comments [...] ANTI HIV 1/2 Routine 09/29/2024 12:00 PM HVAC SPECIALIST care, subsequent in first trimester (HC) ANTI HCV Routine 09/29/2024 12:00 PM HVAC SPECIALIST care, subsequent in first trimester (HC) [...] MD @ 01/08/2025 7:01:45 AM (Electronically Signed) [employer] Grid[employer]mon[employer] InteractiveDaniele DO US Final Result * ANTI HCV (09/29/2024 12:00 PM HVAC SPECIALIST) Pathologist [facility] HEPATITIS C ANTIBODY NON-REACTI VE NON-REACT GURWINDER [facility] Comment: HCV antibody was non-reactive. There is no laboratory evidence of HCV infection. In most cases, no further action is required. However, if recent HCV exposure is suspected, a test for HCV RNA (test code 56904) is suggested. For additional information please refer to http://[employer].Jaman/faq/KRZ63d4 (This link is being provided for informational/ educational purposes only.) Blood BLOOD SPECIMEN / Unknown 09/29/2024 12:00 PM HVAC SPECIALIST 09/29/2024 12:02 PM HVAC SPECIALIST Narrative [facility] - 09/30/2024 3:14 AM HVAC SPECIALIST FASTING:NO FASTING: NO [facility] Timothy FitchImonomy InteractiveDaniele DO SEND OUTS Final Result [facility] [address] [place] [address], [facility] [address] [place] [address] * ANTI HIV 1/2 (09/29/2024 12:00 PM HVAC SPECIALIST) Pathologist [facility] HIV AG/AB, 4TH GEN NON-REACT GURWINDER NON-REACT GURWINDER [facility] Comment: HIV-1 antigen and HIV-1/HIV-2 antibodies were [...] purpose. For additional information please refer to http://education.Jaman/faq/RQJ273 (This link is being provided for informational/ educational purposes only.) The performance of this assay has not been clinically validated in patients less than 2 years old. Blood BLOOD SPECIMEN / Unknown 09/29/2024 12:00 PM HVAC SPECIALIST 09/29/2024 12:02 PM HVAC SPECIALIST Narrative [facility] - 09/30/2024 3:14 AM HVAC SPECIALIST FASTING:NO FASTING: NO Vandana Mandel DO SEND OUTS Final Result [facility] [employer] [facility] [address] [place] [address], [facility] [address] [place] [address] from Last 3 Months or Most Recently Relevant to Health Maintenance Insurance [employer] Advance Directives Documents on File Type Date Recorded Patient Manager Agency Expl anation Treatment Guidelines 12/01/2022 * Full Code (Latest Code Status on File) Date Activated Date Inactivated Comments 12/02/2022 9:00 AM 12/03/2022 3:14 PM Question Answer Comments Code Status Discussion: Discussed Care Teams Gericare Aide Teacher Relationship Specialty Start Date End Date Vandana Mandel DO [address] [facility] [place] [address] PCP - General Obstetrics and Gynecology 11/27/22
--- OUTSIDE RECORDS SUMMARY | 2025-03-24 00:26 | XMS_ITS | Encounter Summary ---
Author Organization [facility] Address [address] [place] [address] Care Team Providers Care Scleroscope Tester Name Role Phone Katarzyna Avitia CNM Primary Care Provider + [phone] Antionette Nelson APRN CNM Unavailable Unavailable Katarzyna Avitia CNM Unavailable [phone] Lesley Mistry MD Unavailable Unavaila ble Antionette Nelson APRN CNM Unavailable Unavailable Antionetet Nelson APRN CNM Unavailable Unavailable Diogenes Soares MD Unavailable [phone] Diogenes Soares MD Unavailable [phone] Ebony Gandara MD Unavailable [phone] Nighat Pendleton MD Unavailable [phone] Encounter Details Date Type Department Care Team (Late st Contact Info) Description 04/10/2019 [facility] [place] [facility] [address] [place] [address] Pinky Jacob APRN CNM [address] [address] Social History Tobacco Use Types [...] on file Legal Sex Female 3:16 AM RESTAURANT AREA MANAGER Gender Identity Not on file Sexual Orientation Straight 11/23/2018 11 :37 AM RESTAURANT AREA MANAGER documented as of this encounter Plan of Treatment Not on file documented as of this encounter Visit Diagnoses Not on filedocumented in this encounter Additional Health Concerns Assessment Noted Time PHQ-9 Depression Total Score: 0 08/12/20 17 1:29 PM RESTAURANT AREA MANAGER documented as of this encounter Care Teams Scleroscope Tester Relationship Specialty Start Date End Date Katarzyna Avitia CNM PCP - General patient support specialist 03/06/19 Antionette Nelson APRN CNM Assigned OBGYN Provider 10/13/20 10/19/20 Katarzyna Avitia CNM [address] [address] Assigned OBGYN Provider 08/18/20 Lesley Mistry MD Assigned OBGYN Provider 09/15/20 10/12/20 Antionette Nelson APRN CNM Assigned OBGYN Provider 07/19/20 08/17/20 Antionette Nelson APRN CNM Assigned OBGYN Provider 09/01/20 09/14/20 Diogenes Soares MD [address] [place] [address] Assigned OBGYN Provider 02/02/21 Diogenes Soares MD [address] [place] [address] Assigned OBGYN Provider 12/29/20 1 Ebony Gandara MD [address] [place], [place] [address] Assigned OBGYN Provider 01/26/21 1 Nighat Pendleton MD [address] [place], [place] [address] Assigned OBGYN Provider 04/25/22 documented as of this encounter
--- OUTSIDE RECORDS SUMMARY | 2025-03-24 00:26 | XMS_ITS | Encounter Summary ---
Author Organization [facility] Address [address] [place] [address] Care Team Providers Care Design Engineer Name Role Phone Katarzyna Avitia CNM Primary Care Provider + [phone] Antionette Nelson APRN CNM Unavailable Unavailable Katarzyna Avitia CNM Unavailable [phone] Lesley Mistry MD Unavailable Unavaila ble Antionette Nelson APRN CNM Unavailable Unavailable Antionette Nelson APRNM Unavailable Unavailable Diogenes Soares MD Unavailable [phone] Diogenes Soares MD Unavailable [phone] Ebony Gandara MD Unavailable [phone] Nighat Pendleton MD Unavailable [phone] Reason for Visit * Reason Onset Date Comments Appointment 04/11/2019 Encounter Details Date Type Department Care Team (Late st Contact Info) Description 04/11/2019 [facility] [place] [facility] [address] [place] [address] Pinky Jacob APRN CNM [address] [facility] [address] [place] [address] Appointment Social History Tobacco Use Types Packs/Day [...] on file Legal Sex Female 3:16 AM MUCK BOSS Gender Identity Not on file Sexual Orientation Straight 11/23/2018 11 :37 AM MUCK BOSS documented as of this encounter Plan of Treatment Not on file documented as of this encounter Visit Diagnoses Not on filedocumented in this encounter Additional Health Concerns Assessment Noted Time PHQ-9 Depression Total Score: 0 08/12/20 17 1:29 PM MUCK BOSS documented as of this encounter Care Teams Design Engineer Relationship Specialty Start Date End Date Katarzyna Avitia CNM PCP - General toll service observer 03/06/19 Antionette Nelson APRN CNM Assigned OBGYN Provider 10/13/20 10/19/20 Katarzyna Avitia CNM [address] [address] Assigned OBGYN Provider 08/18/20 Lesley Mistry MD Assigned OBGYN Provider 09/15/20 10/12/20 Antionette Nelson APRN CNM Assigned OBGYN Provider 07/19/20 08/17/20 Antionette Nelson APRN CNM Assigned OBGYN Provider 09/01/20 09/14/20 Diogenes Soares MD [address] [place] [address] 400 [place], [place] [address] Assigned OBGYN Provider 02/02/21 Diogenes Soares MD [address] [place], [place] [address] Assigned OBGYN Provider 12/29/20 1 Ebony Gandara MD [address] [place], [place] [address] Assigned OBGYN Provider 01/26/21 1 Nighat Pendleton MD [address] [place], [place] [address] Assigned OBGYN Provider 04/25/22 documented as of this encounter
--- OUTSIDE RECORDS SUMMARY | 2025-03-24 00:26 | XMS_ITS | Encounter Summary ---
Author Organization [facility] Address [address] [place] [address] Care Team Providers Care Nuclear Reactor Engineer Name Role Phone Katarzyna Avitia CNM Primary Care Provider + [phone] Antionette Nelson APRN CNM Unavailable Unavailable Katarzyna Avitia CNM Unavailable [phone] Lesley Mistry MD Unavailable Unavaila ble Antionette Nelson APRN CNM Unavailable Unavailable Antionette Nelson APRN CNM Unavailable Unavailable Digoenes Soares MD Unavailable [phone] Diogenes Soares MD Unavailable [phone] Ebony Gandara MD Unavailable [phone] Nighat Pendleton MD Unavailable [phone] Encounter Details Date Type Department Care Team (Late st Contact Info) Description 03/19/2019 [facility] [address] [place] [phone] Silvana Avitia CNM [address] [place] [address] Social History Tobacco Use Types [...] on file Legal Sex Female 3:16 AM PROPOSAL COORDINATOR Gender Identity Not on file Sexual Orientation Straight 11/23/2018 11 :37 AM PROPOSAL COORDINATOR documented as of this encounter Plan of Treatment Not on file documented as of this encounter Visit Diagnoses Not on filedocumented in this encounter Additional Health Concerns Assessment Noted Time PHQ-9 Depression Total Score: 0 08/12/20 17 1:29 PM PROPOSAL COORDINATOR documented as of this encounter Care Teams Nuclear Reactor Engineer Relationship Specialty Start Date End Date Katarzyna Avitia CNM PCP - General center lead consultant 03/06/19 Antionette Nelson APRN CNM Assigned OBGYN Provider 10/13/20 10/19/20 Katarzyna Avitia CNM [address] [address] Assigned OBGYN Provider 08/18/20 Lesley Mistry MD Assigned OBGYN Provider 09/15/20 10/12/20 Antionette Nelson APRN CNM Assigned OBGYN Provider 07/19/20 08/17/20 Antionette Nelson APRN CNM Assigned OBGYN Provider 09/01/20 09/14/20 Diogenes Soares MD [address] [place] [address] 400 [place], [place] [address] Assigned OBGYN Provider 02/02/21 Diogenes Soares MD [address] [place] [address] Assigned OBGYN Provider 12/29/20 1 Ebony Gandara MD [address] [place], [place] [address] Assigned OBGYN Provider 01/26/21 1 Nighat Pendleton MD [address] [place], [place] [address] Assigned OBGYN Provider 04/25/22 documented as of this encounter
== END 2025-03-23 13:12 | disposition home or self-care (01) ==
LOC: US 13:11
PROVIDERS: Visit Provider Obstetrics & Gynecology
DX: O36.5930 Maternal care for other known or suspected poor fetal growth, third trimester, not applicable or unspecified (principal); Z3A.36 36 weeks gestation of pregnancy
CPT/HCPCS: 76816; 76820

== ENCOUNTER 2025-03-27 17:15 | Inpatient (IN) | payer BC, MEDICAID, SELFPAY ==
[2025-03-27] VITALS (31 sets, daily range): BP systolic 111–135; BP diastolic 69–87; PULSE 54–85; RESP 16; TEMP 36.6–36.8; O2SAT 94–100; BMI 31.8
--- NOTE | 2025-03-27 18:06 | P.LDBA_ITS ---
Subjective History of Present Illness Time Seen by Provider: 18:06 Date Seen: 03/27/25 Narrative: Patient is being admitted to Labor and Delivery for induction of labor secondary to severe IUGR. She is a 34 year old at 36 6/7 weeks gestation. Her full history and physical was dictated by Dr. Muhammad on 03/23/2025. Please see this for details. She feels well. Fetus is active. Reviewed cervical ripening methods. Agree to Cook catheter. Specific Issues/Plans G P 3114 : Conor Sons: Dexter Alfa, Krishna, Craig Baby: [place]!. #Severe Growth Restriction - Dx 01/05/2025: EFW: 9%. 02/06/25, EFW <3%, 03/02/25 EFW <3% MFM consult: patient declined b/c this happened in previous pregnancies and everything was fine. US with MEI/SDP and UA doppler weekly NST weekly Growth US [id number] Delivery 37 weeks # Failed 1hr gct: 157 3hr gtt: doing continuous glucose monitor Reviewed on 02/16: no value out of range. Does not meet criteria for GDM # History of x4 recommend type and screen on admit and TXA prior to delivery per transfer records # History of precipitous delivery with last IOL (delivery occurred within 4-6 hours per patient report) # History of growth restriction G2: 4lb 14oz, G4: 4lb 13oz, G5: 5lb 5oz growth US q4 weeks starting at 24 weeks # Rh negative Rhogam at 28 weeks : 01/26/2025 (nurse visit) # Advanced Maternal age Declined NIPT Taking low dose aspirin # Family history of muscular dystrophy in 2nd cousin and cystic fibrosis in cousin's son. Patient declined carrier testing. # RESOLVED Low lying placenta. 1.3cm from cervix. 01/05/2025: Inferior margin 4.2 cm from internal cervical os Declines Tdap. GBS: 03/23/25 [] H&P: 03/23/[address] Muhammad Blood type B negative, antibody screen negative, hemoglobin 13.1, platelets[], hepatitis-C nonreactive, HIV nonreactive, hepatitis B antigen nonreactive, rubella immune, varicella immune, gonorrhea chlamydia[], urine culture[]. Pap smear 10/11/2019 1- for intraepithelial lesion or malignancy, negative HPV. Ultrasounds: 09/29/2024: Single fetus with ultrasound dating 12 weeks 2 days, ANIRUDH 04/11/2025. Given LMP 07/12/2024. Dating by LMP 11 weeks 2 days. 12/01/2024: Single live IUP. Regular cardiac rate of 130 beats per minute. Fetus in multiple positions. Placenta lies posterior without evidence of previa. Inferior placental margin 1.3 cm from the internal cervical os. Amniotic fluid volume appears normal at 9.0 MEI. Single deepest vertical pocket 2.8 cm. Cervical length 4.0 cm. Cord S/D Doppler 2.6. EFW 318 g, 24%. 01/05/2025: Growth: Sonographic imaging demonstrates a single live intrauterine gestation. Fetus demonstrates a regular cardiac rate of 155 beats per minute. Fetus has a breech orientation. The placenta lies posteriorly without evidence of placenta previa (inferior margin 4.2 cm from the internal cervical os). Amniotic fluid volume appears normal. Single deepest vertical pocket 5.6 cm. Cervical length 4.5 cm. Cord S/D Doppler 2.3. BPD 7th percentile, HC 16th percentile, AC 14th percentile, FL 11th percentile. EFW 681g which lies at 9%. 02/06/25: Vertex. SDP 4.8cm. EFW:1129gm, 2#8oz < 3%. Umbilical S/D ratio: 2.5 (28-34wks <4.0). BPD, HC and FL all <3%. AC 6%. 03/02/25: Vertex. 3#5oz, 1516gm. EFW <3%, AC, <3%tile. Umbilical S/D ratio: 2.2- 3.3 (28-34wk <4.0) Normal umbilical s/d ratio 03/23/25: BPP 8/8, SDP 6.2 cm, MEI 14.2 cm, vertex presentation, EFW 1996 g or 4 lb 6 oz (<3%), BPD, HC, AC, FL all <3%, UA S/D 2.6 (normal) issues: History of x4-recommend type and screen on admit and TXA prior to delivery Low lying placenta-1.3 cm from cervix, strict pelvic rest advised: Resolved 01/05/25 Rh negative-recommend RhoGAM at 28 weeks AMA-declines NIPT, due to additional risk factors, low-dose aspirin recommended History of precipitous delivery-after last induction of labor History of growth restriction-neonates weight 4 lb 14 oz, 4 lb 13 oz, and 5 lb 5 oz in G2, G4, and G5 pregnancies, respectively. Recommend growth ultrasound every 4 weeks starting at 24 weeks BMI 26-recommend 15-25 lb weight gain Mental Heatlh: 02/23/25 OB - Problem Based A/P Additional Plan (1) IUGR (intrauterine growth restriction) affecting care of mother: Status: Acute (2) Encounter for induction of labor: Status: Acute Delivery/Labor/Induction Plan Induction method: Intracervical balloon catheter (60 mL in each balloon placed at 1800. Begin slow pitocin infusion at midnight.) OB Exam Physical Exam Vital signs: Temp Pulse Resp BP Pulse Ox 98.2 F 83 16 111/69 96 03/27/25 18:03 03/27/25 17:25 03/27/25 18:03 03/27/25 17:25 03/27/25 17:22 Narrative: Alert, oriented, no acute distress Detailed Labor and Delivery Exam Dilation (cm): 2 Effacement (%): 50 Cervix position: mid Consistency: medium Cervical ripeness score: 5 Tachysystole: No Fetus (Single) Station: -3 Amniotic Membrane Status: intact Heart Rate Baseline: 140 Monitor Accelerations: Present Monitor Decelerations: None Long-Term Variability: Moderate (6-25)
[2025-03-27] MEDS: LACTATED RINGERS 500 ML 500 ML IV (18:35)
[2025-03-27 18:40] LABS: Hematocrit 37.1 % (33.0-51.0); Hemoglobin* 12.2 gm/dL (12.0-16.0); Immature Granulocytes Abs Auto 0.00 K/uL (0.00-0.30); Immature Granulocytes Pct Auto 0.0 %; Mean Corpuscular HGB Conc 33 gm/dL (32-36); Mean Corpuscular Hemoglobin 30 pg (26-34); Mean Corpuscular Volume 90 fL (80-100); RDW Coefficient of Variation % 12.9 % (11.5-15.5); Red Blood Count 4.14 m/uL (4.00-5.20); White Blood Count* 7.66 K/uL (4.50-11.00)
[2025-03-27 18:57] LABS: Lymphocytes Absolute Auto 1.30 K/uL (0.90-2.90); Slide Review Reflex No
[2025-03-28] VITALS (16 sets, daily range): BP systolic 102–136; BP diastolic 65–79; PULSE 56–78; RESP 16–20; TEMP 36.6–36.8; O2SAT 95–98
--- NOTE | 2025-03-28 00:16 | W.PM.OBVAGDE ---
OB Procedure Vag Delivery Mother Details Mother Details: The patient is a 34 year-old, 6, Para 3114, admitted on 03/27/25 at 36 6/7 weeks gestation for induction of labor secondary to severe IUGR. : 6 Para: 4 Weeks Gestation: 36.6 Admission Date: 03/27/25 Additional Details Amniotic Membrane Status: intact Amniotic Membrane Rupture Date: 03/27/25 Amniotic Membrane Rupture Time: 23:22 Amniotic Membrane Fluid Description: Clear Analgesia/Anesthesia Type: None Waterbirth: No Pitcoin: No Intrapartal Events: Labor Induction Induction Method: Intracervical balloon catheter (Placed at 1800, fell out spontaneously at 2011 on 03/27/2025.) Labor Onset: 22:30 Heart: heart tones during second stage were unknown. Delivery Details Delivery Date: 03/27/25 Delivery Time: 23:22 Route of delivery: Infant Gender: Male Infant Viability: Alive; Heart Rate Present Delivery Details: Delivered via precipitous spontaneous vaginal delivery while patient was standing in the delivery room. She suddenly experienced spontaneous rupture of membranes as the infant's head delivered. A labor nurse caught the infant and handed him to me, while I reduced the nuchal cord (x2) and body cord (wrapped x2 like an X beneath his armpits across his chest). The cord was clamped and cut and the was taken to the warmer for resuscitation. Additional Details Shoulder Dystocia: No Placenta Delivery Time: 23:30 Placental Delivery Description: Spontaneous Procedure Done: Global Blood Loss: 100 Laceration: None Episiotomy Description: None Blood Loss Measurement Type: EBL Bakri Used: No Sponge/Need Count Correct: Yes Cord Vessel Description: 3 Vessels Event Summary Status: Mother and were stable after delivery. Disposition: floor
[2025-03-28] MEDS: IBUPROFEN 600 MG TABLET PO ×4 (00:55→23:58)
[2025-03-28] MEDS: DOCUSATE SODIUM 100 MG CAPSULE PO (09:54)
--- NOTE | 2025-03-28 16:12 | P.OBPN_ITS ---
OB - PN:Subj Subjective Date Seen: 03/28/25 Patient comments OB post-: no complaints, pain well controlled, tolerating diet and flatus present [place] status: and doing well [place] feeding status: exclusively Narrative: Julia feels well.? Her pain is well controlled with current medications.? She has no new complaints.? Urinary output is adequate and she is voiding without difficulty.? Has a good appetite, is tolerating a general diet, is passing flatus, and has not had a bowel movement.? Has scant amount of rubra lochia.? She is ambulating well.?She is and working with to improve babies latch. OB - PN: Obj Exam Physical Exam: Vital signs: Temp Pulse Resp BP Pulse Ox O2 Del Method 98.2 F 73 18 114/74 97 Room Air 03/28/25 08:40 03/28/25 12:26 03/28/25 12:26 03/28/25 12:26 03/28/25 12:26 03/28/25 12:26 Narrative: GENERAL APPEARANCE:? normal affect, alert, no distress? MOOD:? appropriate? CHEST:? clear to auscultation and percussion? HEART:? regular rate and rhythm? ABDOMEN:? soft, non-tender the uterine fundus is U/2 and is appropriate for the stage of recovery.? PERINEUM:? mild edema of the perineum, there is a intact perineum that is healing well.? EXTREMITIES:? normal and no edema? OB - PN: Obj Data Labs Labs: Laboratory Results - last 24 hr 03/27/25 18:30 WBC 7.66 RBC 4.14 Hgb 12.2 Hct 37.1 MCV 90 MCH 30 MCHC 33 RDW Coeff of Bharti 12.9 Plt Count 221 Neut % (Auto) 72.8 H Lymph % (Auto) 17.1 L Morgan % (Auto) 9.3 Eos % (Auto) 0.4 Baso % (Auto) 0.4 Neut # (Auto) 5.60 Lymph # (Auto) 1.30 Morgan # (Auto) 0.70 Eos # (Auto) 0.03 Baso # (Auto) 0.03 Abs Immat Gran (auto) 0.00 Imm/Tot Granulo (auto) 0.0 Blood Type B Negative Antibody Screen POSITIVE OB - PN: A/P Delivery Assessment and Plan (1) Rh negative, maternal: Status: Acute (2) Lactating mother: Status: Acute (3) care following vaginal delivery: Status: Acute Plan day: 1 Plan: routine care Comments: Anticipate discharge home tomorrow.
[2025-03-29 06:34] LABS: Hemoglobin* 11.3 gm/dL (12.0-16.0)
[2025-03-29 08:01] VITALS: BP 119/81; PULSE 75; RESP 19; TEMP 36.6; O2SAT 96
--- NOTE | 2025-03-29 12:18 | P.DS_ITS ---
DS: Providers Provider Date Seen: 03/29/25 Date of admission: 03/27/25 17:15 Primary care physician: Not a Local Provider Admitting Clinician: Patricia Muhammad MD Attending Physician on discharge: Yair POSADAS Date of Discharge: 03/29/25 DS: Diagnosis Discharge Diagnosis (1) care following vaginal delivery: Status: Acute (2) Lactating mother: Status: Acute (3) Rh negative, maternal: Status: Acute Exam Narrative: Exam Narrative: GENERAL APPEARANCE:? normal affect, alert, no distress MOOD:? appropriate CHEST:? clear to auscultation HEART:? regular rate and rhythm ABDOMEN:? soft, non-tender the uterine fundus is 2 finger breadths below Umbilicus, Midline and is appropriate for the stage of recovery. PERINEUM:? deferred EXTREMITIES:? normal and minimal edema Const: Vital Signs, click to edit/add: Vital Signs - 24 hr 03/28/25 12:26 03/28/25 17:00 03/28/25 20:28 Temperature 98.0 F Pulse Rate [Pulse Oximeter] 73 78 73 Respiratory Rate 18 16 16 Blood Pressure [Ri ght Arm] 114/74 128/73 121/77 Pulse Oximetry 97 95 96 Oxygen Delivery Me thod Room Air Room Air Room Air 03/28/25 23:26 03/29/25 08:01 Temperature 98.2 F 97.9 F Pulse Rate [Pulse Oximeter] 71 75 Respiratory Rate 16 19 Blood Pressure [Ri ght Arm] 120/79 119/81 Pulse Oximetry 96 96 Oxygen Delivery Me thod Room Air Room Air OB - DS: Summary Hospital Course Hospital Course: Julia is a 34 y.o. G 6 P 5015 who was admitted to L & D for IOL for severe IUGR.? She had a NVD that was uncomplicated. The patient feels well.? The pain is well controlled with current medications.? She has no new complaints.? She is breast feeding and reports things are going well. the patient has done well.? Vitals have been stable.? She has remained afebrile.? Has a good appetite, is tolerating a general diet.? She is voiding without difficulty.? She is passing gas and has had a bowel movement.? She is ambulating and denies any dizziness.? Has small amount of rubra lochia. She is planning NFP for prevention.? ?? Problems: none? ?? plan:? Discharge home with baby.? Follow up in 2 weeks and 6 weeks.? , may see if needed? Hgb 11.3. ? Peripartum Data Infant delivery method: Vaginal Laceration description: None Episiotomy description: None complications: none Infant Gender: Male Discharge Plan: Home Status at Discharge Overall status at discharge: patient is progressing back to baseline Time Spent with Patient Time attestation: Total time spent providing and/or coordinating discharge services: Time spent: Less than 30 minutes Discharge Plan Discharge Disposition: Home, Self-Care Date of Admission: 03/27/25 17:15 Attending Provider on Discharge: Audrey Arenas Consulting Providers: Sara Koehler Primary Care Provider: Provider,Not a Local Condition: Stable Anticipated Discharge Date/Time: 03/29/25 12:23 Discharge Medications: New docusate sodium 100 mg Capsule 100 mg PO DAILY Qty: 60 0RF Continued DHA 200 mg capsule 200 mg PO DAILY Discontinued aspirin [Adult Low Dose Aspirin] 81 mg tablet,delayed release (DR/EC) 81 mg PO QDAY Discharge Orders: Discharge Order (Routine); Ordered 03/29/25 Ordered By: Audrey Arenas Patient Education: OB Over the Counter Medication Information, OB Vaginal/Breast Feeding Activity Level: Activity as Tolerated and No strenuous activity Discharge Diet: Regular Follow Up Appointments: [facility] [Provider Group] Forms: [facility] Info Instructions
[2025-03-29] MEDS: IBUPROFEN 600 MG TABLET PO (20:46)
== END 2025-03-29 20:49 | disposition home or self-care (01) | DRG 560 ==
PROVIDERS: Admitting Provider Obstetrics & Gynecology; Visit Provider Obstetrics & Gynecology
DX: O36.5930 Maternal care for other known or suspected poor fetal growth, third trimester, not applicable or unspecified (principal); O26.893 Other specified pregnancy related conditions, third trimester; Z67.21 Type B blood, Rh negative; Z82.79 Family history of other congenital malformations, deformations and chromosomal abnormalities; Z82.69 Family history of other diseases of the musculoskeletal system and connective tissue; Z37.0 Single live birth; Z3A.36 36 weeks gestation of pregnancy
CPT/HCPCS: 36415; 59200; 85018; 85025; 85461; 86592; 86850; 86870; 86880; 86900; 86901; G0463; A9270; C1726; J2791; J7120